=== PATIENT | male | born 1950 | race Caucasian/White ===

== ENCOUNTER → 2016-06-11 | Outpatient (REF) | payer MEDICARE, MEDICAID ==
[~2016-06-11] MED LIST: /ATOR40TA PO; AMOXICILLIN; ASPI81TA85 PO; CLOP75TA2 PO; FOLI1TAB86 PO; METO50TA2 PO; NASAL SPRAY; NICO21PAT EXT; SENO8.6T9 PO; TYLE325T5 PO; VITA100T2 PO; VITMTA PO
[2016-06-11 18:44] LABS: MEAN CORPUSCULAR HEMOGLOBIN 30.1 pg (27.0-33.0); MEAN CORPUSCULAR HGB CONC 33.4 g/dl (32.0-36.5); RED CELL DISTRIBUTION WIDTH 12.5 % (11.5-14.5); WHITE BLOOD COUNT 5.8 K/mm3 (4.0-10.0)
[2016-06-11 18:53] LABS: ALBUMIN 4.1 GM/DL (3.2-5.2); ALBUMIN/GLOBULIN RATIO 1.17 (1.00-1.93); ALKALINE PHOSPHATASE 133 U/L (45-117); ALT/SGPT 41 U/L (12-78); ANION GAP 7 MEQ/L (8-16); AST/SGOT 25 U/L (15-37); BILIRUBIN,TOTAL 0.7 MG/DL (0.2-1.0); BLOOD UREA NITROGEN 13 MG/DL (7-18); CALCIUM LEVEL 9.2 MG/DL (8.8-10.2); CARBON DIOXIDE LEVEL 31 MEQ/L (21-32); CHLORIDE LEVEL 100 MEQ/L (98-107); CREATININE FOR GFR 0.66 MG/DL (0.70-1.30); GLOMERULAR FILTRATION RATE > 60.0 (>49); GLUCOSE, FASTING 81 MG/DL (80-110); SODIUM LEVEL 138 MEQ/L (136-145); TOTAL PROTEIN 7.6 GM/DL (6.4-8.2)
== END ==
LOC: M LAB REF 16:27
PROVIDERS: ATTEND Physician Assistant
DX: Z51.81 Encounter for therapeutic drug level monitoring (principal); Z79.899 Other long term (current) drug therapy

== ENCOUNTER 2016-06-21 17:14 | Inpatient (IN) | payer MEDICARE, MEDICAID ==
[~2016-06-21] VITALS: Ht 177.8 cm; Wt 78.8 kg
[2016-06-21] MEDS ORDERED: NS 500 ML IV ONE (17:45)
[2016-06-21 18:32] LABS: BASO % 0.2 % (0.0-1.0); EOS % 0.3 % (0.0-3.0); LARGE UNSTAINED CELL # 0.1 K/mm3 (0.0-0.4); LARGE UNSTAINED CELL % 0.4 % (0.0-4.0); LYMPH # 0.3 K/mm3 (1.5-4.5); LYMPH % 2.4 % (24.0-44.0); MEAN CORPUSCULAR HEMOGLOBIN 29.8 pg (27.0-33.0); MEAN CORPUSCULAR VOLUME 87.7 fl (80.0-96.0); MONO # 0.5 K/mm3 (0.0-0.8); MONO % 3.2 % (0.0-5.0); NEUTROPHILS # 13.1 K/mm3 (1.8-7.7); NEUTROPHILS % 93.5 % (36.0-66.0); PLATELET COUNT, AUTOMATED 257 k/mm3 (150-450); RED CELL DISTRIBUTION WIDTH 12.6 % (11.5-14.5)
[2016-06-21] MEDS ORDERED: LISI-538 PO (18:32)
[2016-06-21] MEDS ORDERED: FOLI5INJ2 SC (18:32)
[2016-06-21] MEDS ORDERED: SERT25TA PO (18:32)
[2016-06-21] MEDS ORDERED: APAP325T PO (18:32)
[2016-06-21] MEDS ORDERED: ASPI81TA21 PO (18:32)
[2016-06-21] MEDS ORDERED: ATOR40TA PO (18:32)
[2016-06-21] MEDS ORDERED: ACETAMINOPHEN TAB 650MG DOSE (2X325MG) PO ONE (18:45)
[2016-06-21 19:07] LABS: ALBUMIN 3.6 GM/DL (3.2-5.2); ALBUMIN/GLOBULIN RATIO 0.95 (1.00-1.93); ALKALINE PHOSPHATASE 107 U/L (45-117); ALT/SGPT 34 U/L (12-78); ANION GAP 10 MEQ/L (8-16); AST/SGOT 23 U/L (15-37); BILIRUBIN,DIRECT 0.1 MG/DL (0.0-0.2); BILIRUBIN,TOTAL 0.7 MG/DL (0.2-1.0); BLOOD UREA NITROGEN 15 MG/DL (7-18); CALCIUM LEVEL 9.3 MG/DL (8.8-10.2); CARBON DIOXIDE LEVEL 27 MEQ/L (21-32); CHLORIDE LEVEL 96 MEQ/L (98-107); CREATININE FOR GFR 0.87 MG/DL (0.70-1.30); GLOMERULAR FILTRATION RATE > 60.0 (>49); GLUCOSE, FASTING 109 MG/DL (80-110); SODIUM LEVEL 133 MEQ/L (136-145); TOTAL PROTEIN 7.4 GM/DL (6.4-8.2)
[2016-06-21] MEDS ORDERED: GASTROGRAFIN SOLUTION 30ML (Q9963) PO ONE ×2 (20:30)
[2016-06-21] MEDS ORDERED: NS 1,000 ML IV ONE ×2 (21:00→23:30)
[2016-06-21] MEDS ORDERED: ISOVUE-370 76% 100ML VIAL (Q9967) As Ordered ONE (22:11)
[2016-06-21] MEDS ORDERED: ATOR1TAB21 PO (23:08)
[2016-06-21] MEDS ORDERED: FOLI1TAB2 PO (23:08)
--- NOTE | 2016-06-21 23:30 | REPUSA ---
CLINICAL HISTORY: Abdominal pain. TECHNIQUE: CT abdomen and pelvis following administration of IV contrast. COMPARISON: No pertinent prior studies are available at this time. CT ABDOMEN WITH CONTRAST: Lung bases: Bibasilar dependent atelectasis. Stomach: PEG tube noted in good position. Liver: No intrahepatic ductal dilation. Gallbladder: Normally distended. Pancreas: No pancreatic duct dilation. Bowel loops: Nondistended. Spleen: Normal size. Adrenals: 1.7 cm right adrenal nodule. Kidneys: No stones or hydronephrosis. Aorta: Irregular atherosclerotic plaques, some which appear unstable Peritoneum: No free air. CT PELVIS WITH CONTRAST: Colon: Multiple sigmoid diverticula without convincing evidence of diverticulitis. Appendix: Normal appendix is seen. Bladder: Normally distended. Pelvic organs: Unremarkable. Peritoneum: No fluid. Skeleton: No acute findings. IMPRESSION: 1. Sigmoid diverticulosis without convincing evidence of diverticulitis. However, mild diverticulitis cannot be excluded if the patient has left lower quadrant symptoms. 2. 1.7 cm right adrenal nodule. This may be followed up with noncontrast abdominal CT or adrenal MRI, on a nonemergent basis.
[2016-06-22] MEDS ORDERED: CIPROFLOXACIN 400 MG in APPROPRIATE DILUENT 1 EA IV ONE ×2
[2016-06-22] MEDS ORDERED: metroNIDAZOLE 500 MG in APPROPRIATE DILUENT 1 EA IV ONE ×2
[2016-06-22] MEDS ORDERED: ACETAMINOPHEN 325 MG TAB PO PRN (00:15)
[2016-06-22] MEDS ORDERED: ONDANSETRON 4MG/2ML VIAL (J2405) IV PRN (01:15)
[2016-06-22] MEDS ORDERED: PERCOCET 5MG/325MG TAB PO PRN ×2 (01:15)
[2016-06-22 02:25] VITALS: BP 104/66
[2016-06-22] MEDS: NS 1,000 ML IV SCH ×2 (02:38→14:50)
[2016-06-22 04:00] VITALS: BP 94/51
[2016-06-22 06:48] LABS: MEAN CORPUSCULAR HEMOGLOBIN 30.5 pg (27.0-33.0); MEAN CORPUSCULAR HGB CONC 34.2 g/dl (32.0-36.5); MEAN CORPUSCULAR VOLUME 89.2 fl (80.0-96.0); RED CELL DISTRIBUTION WIDTH 12.8 % (11.5-14.5); WHITE BLOOD COUNT 7.8 K/mm3 (4.0-10.0)
--- NOTE | 2016-06-22 06:54 | HPE ---
DATE OF ADMISSION: 06/22/2016 PRIMARY CARE PROVIDER: Dr. Fagan CHIEF COMPLAINT: Fever, nausea and vomiting. HISTORY OF PRESENT ILLNESS: The patient is a 66-year-old man status post a CVA with right sided residual deficits who lives at home with home health aide who was brought into the emergency room by his health care proxy and EMS after EMS was called for low blood pressure and fevers. As per documentation from the emergency room (ER), when EMS arrived, the patient was not hypotensive. He was mildly hypoxic and was started on nasal cannula oxygen which resolved with 6 liters. The patient is nonverbal at his baseline as he only gives thumbs up and thumbs down. He can follow basic commands, but cannot answer any questions. He is unable to provide any history and as such history is obtained via verbal report from the emergency department (ED) provider and review of the medical record. PAST MEDICAL HISTORY: 1. CVA with residual deficits. 2. Hypertension. 3. Alcohol abuse and tobacco abuse prior to CVA. 4. Dyslipidemia. 5. Diastolic congestive heart failure. 6. Mood disorder. PAST SURGICAL HISTORY: Tooth extraction. ALLERGIES: No known drug allergies. SOCIAL HISTORY: The patient lives at home with home health. He has a health care proxy. He has a history of excessive tobacco and alcohol abuse in the past prior to his CVA two years ago. He is a retired goff. FAMILY HISTORY: Noncontributory. REVIEW OF SYSTEMS: Unable to be obtained. HOME MEDICATIONS: - atorvastatin 60 mg at bedtime - lisinopril 20 mg daily - acetaminophen 325 mg every 4 hours as needed pain - aspirin 81 mg daily - folic acid 1 mg daily - Sertraline 25 mg daily PHYSICAL EXAMINATION: T-max 100.8. Temperature current 98.8. Pulse 86. Respiratory rate 20. Blood pressure 101/59 and as low as 76/37 in the emergency room, which was improved with IV fluids. Oxygen saturation 99% on 2 liters nasal cannula. GENERAL: He is a disheveled elderly man laying flat on the stretcher. He is resting comfortably. He does not appear to be in any acute distress. HEENT: He has some chronic facial droop. He has very dry mucous membranes. He appears disheveled. CARDIOVASCULAR EXAM: S1, S2. Regular. RESPIRATORY EXAM: Clear. ABDOMINAL EXAM: Bowel sounds are present. The abdomen is soft and nontender. EXTREMITIES: No clubbing, cyanosis or edema. He has some skin tenting. No ulcers or open sores. LABORATORY STUDIES: WBC 14.0, hemoglobin 13.8, hematocrit 40.5 and platelet count 257. Chemistry panel with sodium 133, potassium 4.0, chloride 96, bicarbonate 27, BUN 15, creatinine 0.8, lactic acid 1.7. Liver function tests within normal limits. A set of cardiac enzymes is negative. Lipase is negative. Urinalysis is positive for RBCs, but not any WBCs. MICROBIOLOGY: Blood cultures have been drawn and pending. Influenza swab is negative. IMAGING: The patient did have a CT scan of the abdomen and pelvis which could not rule out mild diverticulitis. The patient was found to have a 1.7 cm right adrenal nodule as well. He did have a chest x-ray. There is no report available at this time, but no obvious infiltrate as per the ED provider. ASSESSMENT AND PLAN: This is a 66-year-old man presenting with fever and hypotension. 1. Fever and hypotension. Given that the patient is nonverbal, the only thing we have to direct us is his symptoms of nausea and vomiting and a CT scan which cannot exclude some mild diverticulitis. Will keep him nothing by mouth (n.p.o.) and place him on Cipro and Flagyl IV and provide him with pain medications. Will admit him to the progressive care unit as he was hypotensive. He is improving with IV fluids and will continue him on normal saline at 75 mL/hr. He has a history of diastolic congestive heart failure so we will use cautiously. To rule out other etiologies for his fever, will check a respiratory PCR and a gastrointestinal (GI) PCR panel in the stool. He does not exhibit any meningeal signs. He is able to follow commands and does not appear to have restricted range of motion at the neck. 2. Adrenal nodule, incidental finding on the scan. Consider outpatient followup with his PCP. 3. History of CVA. The patient is on aspirin and a statin. 4. Mood disorder. Will continue with Zoloft. 5. History of alcohol abuse. Continue with folic acid. 6. Hypochloridemia and hyponatremia. It appears to be hypovolemic hyponatremia. We will provide IV fluids and recheck. 7. Diastolic congestive heart failure. He actually appears hypovolemic at this time and as such we will provide him with IV fluids. We will hold his lisinopril. 8. Hypertension. As outlined above, will hold his lisinopril. 9. Deep vein thrombosis (DVT) prophylaxis. The patient will be on Lovenox. DISPOSITION: The patient is admitted to the progressive care unit to Dr. Dalton's service who will continue following the patient at 7:00 a.m.
[2016-06-22 07:14] LABS: ALKALINE PHOSPHATASE 94 U/L (45-117); ALT/SGPT 36 U/L (12-78); ANION GAP 9 MEQ/L (8-16); AST/SGOT 24 U/L (15-37); BILIRUBIN,TOTAL 0.6 MG/DL (0.2-1.0); BLOOD UREA NITROGEN 11 MG/DL (7-18); CARBON DIOXIDE LEVEL 27 MEQ/L (21-32); CHLORIDE LEVEL 100 MEQ/L (98-107); CREATININE FOR GFR 0.69 MG/DL (0.70-1.30); GLOMERULAR FILTRATION RATE > 60.0 (>49); GLUCOSE, FASTING 106 MG/DL (80-110); SODIUM LEVEL 136 MEQ/L (136-145)
--- NOTE | 2016-06-22 07:32 | REP ---
Clinical: Lower chest and abdominal pain. Technique: PA and lateral. Comparison: 06/09/2013. Findings: Mediastinum and cardiac silhouette are stable with evidence for prior sternotomy and CABG. Lung mayorga demonstrate chronic changes without acute consolidation, effusion, or pneumothorax. Skeletal structures demonstrate age-related changes. Impression: Chronic stable changes. No acute cardiopulmonary process or focal consolidation. Signed by Yrn Nicole MD 06/22/2016 07:24 A
[2016-06-22 08:00] VITALS: BP 96/55
[2016-06-22] MEDS: metroNIDAZOLE 500 MG in APPROPRIATE DILUENT 1 EA IV SCH ×3 (08:01→23:26)
[2016-06-22 08:26] LABS: ALBUMIN/GLOBULIN RATIO 1.07 (1.00-1.93)
[2016-06-22 08:45] LABS: TOTAL PROTEIN 5.6 GM/DL (6.4-8.2)
[2016-06-22 08:46] LABS: ALBUMIN 2.9 GM/DL (3.2-5.2)
[2016-06-22] MEDS: SERTRALINE HCL 25 MG TABLET PO SCH (09:00)
[2016-06-22] MEDS: ASPIRIN 81 MG ENTERIC TAB PO SCH (09:51)
[2016-06-22] MEDS: FOLIC ACID 1 MG TAB PO SCH (09:51)
[2016-06-22] MEDS: ENOXAPARIN 40 MG/0.4 ML SYRINGE (J1650) SC SCH (09:52)
[2016-06-22] MEDS: CIPROFLOXACIN 400 MG in APPROPRIATE DILUENT 1 EA IV SCH ×2 (11:11→23:25)
[2016-06-22 12:00] VITALS: BP 91/51
--- NOTE | 2016-06-22 12:29 | ECGEPIP ---
Stationary ECG Study [facility] - ED Test Date: 2016-06-21 Pat Name: JIA DURAN Department: Room: - Gender: M Endocrinology Specialist: TARA : [id number] Requested By: PAULY Clark Order Number: [id number] Reading MD: Bisi Neely Measurements Intervals [place] Rate: 98 P: 50 RI: 166 QRS: 42 QRSD: 101 T: 140 QT: 321 QTc: 411 Interpretive Statements SINUS RHYTHM NONSPECIFIC T-WAVE ABNORMALITY INCREASED RATE 06/09/13 Electronically Signed On 06-22-2016 12:29:04 EDT by Bisi Neely
[2016-06-22 14:15] VITALS: BP 95/50
[2016-06-22 22:00] VITALS: BP 118/63
[2016-06-23 06:00] VITALS: BP 113/53
[2016-06-23 07:11] LABS: MEAN CORPUSCULAR HEMOGLOBIN 30.6 pg (27.0-33.0); MEAN CORPUSCULAR HGB CONC 34.1 g/dl (32.0-36.5); MEAN CORPUSCULAR VOLUME 89.6 fl (80.0-96.0); RED CELL DISTRIBUTION WIDTH 12.6 % (11.5-14.5); WHITE BLOOD COUNT 4.5 K/mm3 (4.0-10.0)
[2016-06-23 07:29] LABS: ANION GAP 9 MEQ/L (8-16); BLOOD UREA NITROGEN 9 MG/DL (7-18); CALCIUM LEVEL 8.6 MG/DL (8.8-10.2); CARBON DIOXIDE LEVEL 30 MEQ/L (21-32); CHLORIDE LEVEL 101 MEQ/L (98-107); CREATININE FOR GFR 0.75 MG/DL (0.70-1.30); GLOMERULAR FILTRATION RATE > 60.0 (>49); GLUCOSE, FASTING 92 MG/DL (80-110); POTASSIUM SERUM 3.7 MEQ/L (3.5-5.1); SODIUM LEVEL 140 MEQ/L (136-145)
[2016-06-23] MEDS: metroNIDAZOLE 500 MG in APPROPRIATE DILUENT 1 EA IV SCH ×2 (08:30→16:06)
[2016-06-23] MEDS: SERTRALINE HCL 25 MG TABLET PO SCH (08:30)
[2016-06-23] MEDS: FOLIC ACID 1 MG TAB PO SCH (08:30)
[2016-06-23] MEDS: ASPIRIN 81 MG ENTERIC TAB PO SCH (08:30)
[2016-06-23] MEDS: ENOXAPARIN 40 MG/0.4 ML SYRINGE (J1650) SC SCH (08:31)
[2016-06-23] MEDS: CIPROFLOXACIN 400 MG in APPROPRIATE DILUENT 1 EA IV SCH (12:03)
[2016-06-23 14:00] VITALS: BP 112/59
[2016-06-23 20:00] VITALS: BP 127/67
[2016-06-24] MEDS: metroNIDAZOLE 500 MG in APPROPRIATE DILUENT 1 EA IV SCH ×2 (00:06→10:37)
[2016-06-24] MEDS: CIPROFLOXACIN 400 MG in APPROPRIATE DILUENT 1 EA IV SCH ×2 (00:08→11:53)
[2016-06-24 06:00] VITALS: BP 108/62
[2016-06-24 06:56] LABS: MEAN CORPUSCULAR HEMOGLOBIN 29.8 pg (27.0-33.0); MEAN CORPUSCULAR HGB CONC 33.7 g/dl (32.0-36.5); MEAN CORPUSCULAR VOLUME 88.5 fl (80.0-96.0); RED CELL DISTRIBUTION WIDTH 12.5 % (11.5-14.5); WHITE BLOOD COUNT 4.8 K/mm3 (4.0-10.0)
[2016-06-24 07:05] LABS: ANION GAP 5 MEQ/L (8-16); BLOOD UREA NITROGEN 11 MG/DL (7-18); CALCIUM LEVEL 8.4 MG/DL (8.8-10.2); CARBON DIOXIDE LEVEL 30 MEQ/L (21-32); CHLORIDE LEVEL 105 MEQ/L (98-107); CREATININE FOR GFR 0.65 MG/DL (0.70-1.30); GLOMERULAR FILTRATION RATE > 60.0 (>49); GLUCOSE, FASTING 98 MG/DL (80-110); POTASSIUM SERUM 3.9 MEQ/L (3.5-5.1); SODIUM LEVEL 140 MEQ/L (136-145)
[2016-06-24] MEDS: ENOXAPARIN 40 MG/0.4 ML SYRINGE (J1650) SC SCH (10:37)
[2016-06-24] MEDS: ASPIRIN 81 MG ENTERIC TAB PO SCH (10:38)
[2016-06-24] MEDS: FOLIC ACID 1 MG TAB PO SCH (10:38)
[2016-06-24] MEDS: SERTRALINE HCL 25 MG TABLET PO SCH (10:38)
--- NOTE | 2016-06-24 12:12 | IPNPDOC ---
Subjective Date Seen The patient was seen on 06/23/16. Subjective Chief Complaint/HPI The patient is a 66-year-old male admitted with a reason for visit of Diverticulitis. Events since last encounter pt is nonverbal, no acute events overnight Objective Physical Examination General Exam: Positive: No Acute Distress Eye Exam: Positive: Conjunctiva & lids normal, PERRLA Chest Exam: Positive: Clear to auscultation, Normal air movement Abdomen Exam: Positive: Normal bowel sounds, Soft, Negative: Hepatospenomegaly, Tenderness Extremity Exam: Positive: Other (right sided deficits) Assessment /Plan Problems (1) Gait instability Status: Acute Problem Text: * pt has right sided deficits due to history of CVA * PT has evaluated pt yesterday and he was found to need more physical rehab * PFS is consulted for possible placement (2) Impaired activities of daily living Status: Acute Problem Text: * pt was found to be unkempt (3) History of CVA with residual deficit Status: Chronic Response to Treatment: Stable (4) HTN (hypertension) Status: Chronic Response to Treatment: Stable (5) HLD (hyperlipidemia) Status: Chronic Response to Treatment: Stable (6) CHF (congestive heart failure) Status: Chronic Problem Text: * pt has diastolic dysfunction * doesn't appear to be fluid overloaded (7) Diverticulitis Status: Acute Problem Text: * continue antibiotics * no fevers or elevated wbc * pt is tolerating diet (8) Adrenal nodule Status: Acute Problem Text: 1.[address] on [address] scan follow up outpt recommended Plan/VTE VTE Prophylaxis Ordered?: Yes VS, [facility]s/I&O Vital Signs Date Time Temp Pulse Resp B/P Pulse Ox O2 Delivery O2 Flow Rate FiO2 06/23/16 14:00 98.0 71 18 112/59 94 Room Air 06/22/16 02:25 3.5 I&O- Last 24 Hours up to 6 AM 06/23/16 06:00 Intake Total 1080 ml Balance 1080 ml Laboratory Data 24H LABS Laboratory Tests 2 06/23/16 06:29: Anion Gap 9, Blood Urea Nitrogen 9, Creatinine 0.75, Sodium Level 140, Potassium Level 3.7, Chloride Level 101, Carbon Dioxide Level 30, Calcium Level 8.6L, Glomerular Filtration Rate > 60.0 CBC/BMP Laboratory Tests 06/23/16 06:29 Calcium Level 8.6 L, Red Blood Count 4.05 L, Mean Corpuscular Volume 89.6, Mean Corpuscular Hemoglobin 30.6, Mean Corpuscular Hemoglobin Concent 34.1, Red Cell Distribution Width 12.6 Microbiology Microbiology 06/21/16 Blood Culture - Preliminary, Resulted No Growth after 48 hours. All Specime... 06/21/16 Blood Culture - Preliminary, Resulted No Growth after 48 hours. All Specime... 06/21/16 Influenza Virus Type A Antigen - Final, Complete 06/21/16 Influenza Virus Type B Antigen - Final, Complete 06/21/16 Respiratory Virus Panel (PCR) (MONO) - Final, Complete MONA PULIDO DO Jun 23, 2016 19:13
--- NOTE | 2016-06-24 12:19 | IPNPDOC ---
Subjective Date Seen The patient was seen on 06/24/16. Subjective Chief Complaint/HPI The patient is a 66-year-old male admitted with a reason for visit of Diverticulitis. Events since last encounter pt seen and examined doing well, no other events, overnight, General: Reports: ROS Unobtainable Objective Physical Examination General Exam: Positive: No Acute Distress Eye Exam: Positive: Conjunctiva & lids normal, PERRLA Chest Exam: Positive: Clear to auscultation, Normal air movement Abdomen Exam: Positive: Normal bowel sounds, Soft, Negative: Hepatospenomegaly, Tenderness Extremity Exam: Positive: Other (right sided deficits) Assessment /Plan Problems (1) Gait instability Status: Acute Problem Text: * pt has right sided deficits due to history of CVA * PT has evaluated pt yesterday and he was found to need more physical rehab * PFS is consulted for possible placement (2) Impaired activities of daily living Status: Acute Problem Text: * pt was found to be unkempt (3) History of CVA with residual deficit Status: Chronic Response to Treatment: Stable Problem Text: * pt has right sided deficits and nonverbal * he has been living alone with [facility] coming by a few time week * will likely need rehab vs long term care administrator placment * PT/OT and pfs consulted (4) HTN (hypertension) Status: Chronic Response to Treatment: Stable Problem Text: * pt's pressure has been controlled with no medication * his lisinopril was held on admission (5) HLD (hyperlipidemia) Status: Chronic Response to Treatment: Stable (6) CHF (congestive heart failure) Status: Chronic Problem Text: * pt has diastolic dysfunction * doesn't appear to be fluid overloaded (7) Diverticulitis Status: Acute Problem Text: * continue antibiotics * no fevers or elevated wbc * pt is tolerating diet (8) Adrenal nodule Status: Acute Problem Text: 1.[address] nodule on CT scan follow up outpt recommended Plan/VTE VTE Prophylaxis Ordered?: Yes VS, I&O, 24H, Fishbone Vital Signs/I&O Vital Signs Date Time Temp Pulse Resp B/P Pulse Ox O2 Delivery O2 Flow Rate FiO2 06/24/16 06:00 98.1 89 18 108/62 93 Room Air 06/22/16 02:25 3.5 I&O- Last 24 Hours up to 6 AM 06/24/16 06:00 Intake Total 1610 ml Balance 1610 ml Laboratory Data 24H LABS Laboratory Tests 2 06/24/16 06:29: Anion Gap 5L, Blood Urea Nitrogen 11, Creatinine 0.65L, Sodium Level 140, Potassium Level 3.9, Chloride Level 105, Carbon Dioxide Level 30, Calcium Level 8.4L, Glomerular Filtration Rate > 60.0 CBC/BMP Laboratory Tests 06/24/16 06:29 Calcium Level 8.4 L, Red Blood Count 4.08 L, Mean Corpuscular Volume 88.5, Mean Corpuscular Hemoglobin 29.8, Mean Corpuscular Hemoglobin Concent 33.7, Red Cell Distribution Width 12.5 Microbiology Microbiology 06/21/16 Blood Culture - Preliminary, Resulted No Growth after 48 hours. All Specime... 06/21/16 Blood Culture - Preliminary, Resulted No Growth after 48 hours. All Specime... 06/21/16 Influenza Virus Type A Antigen - Final, Complete 06/21/16 Influenza Virus Type B Antigen - Final, Complete 06/21/16 Respiratory Virus Panel (PCR) (MONO) - Final, Complete MONA PULIDO DO Jun 24, 2016 12:18
[2016-06-24 14:00] VITALS: BP 120/63
[2016-06-24] MEDS: CIPROFLOXACIN 250 MG TAB PO SCH (18:15)
[2016-06-24] MEDS: metroNIDAZOLE (FLAGYL) 500 MG TAB PO SCH (20:53)
[2016-06-24 22:00] VITALS: BP 145/63
[2016-06-25] MEDS: CIPROFLOXACIN 250 MG TAB PO SCH ×2 (05:40→17:48)
[2016-06-25] MEDS: metroNIDAZOLE (FLAGYL) 500 MG TAB PO SCH ×3 (05:40→21:11)
[2016-06-25 06:00] VITALS: BP 121/70
[2016-06-25 06:52] LABS: MEAN CORPUSCULAR HEMOGLOBIN 29.6 pg (27.0-33.0); MEAN CORPUSCULAR HGB CONC 33.8 g/dl (32.0-36.5); MEAN CORPUSCULAR VOLUME 87.5 fl (80.0-96.0); RED CELL DISTRIBUTION WIDTH 12.6 % (11.5-14.5); WHITE BLOOD COUNT 4.8 K/mm3 (4.0-10.0)
[2016-06-25 06:56] LABS: ANION GAP 8 MEQ/L (8-16); BLOOD UREA NITROGEN 12 MG/DL (7-18); CALCIUM LEVEL 8.3 MG/DL (8.8-10.2); CARBON DIOXIDE LEVEL 29 MEQ/L (21-32); CHLORIDE LEVEL 104 MEQ/L (98-107); CREATININE FOR GFR 0.68 MG/DL (0.70-1.30); GLOMERULAR FILTRATION RATE > 60.0 (>49); GLUCOSE, FASTING 97 MG/DL (80-110); SODIUM LEVEL 141 MEQ/L (136-145)
[2016-06-25] MEDS: FOLIC ACID 1 MG TAB PO SCH (10:04)
[2016-06-25] MEDS: SERTRALINE HCL 25 MG TABLET PO SCH (10:04)
[2016-06-25] MEDS: ENOXAPARIN 40 MG/0.4 ML SYRINGE (J1650) SC SCH (10:04)
[2016-06-25] MEDS: ASPIRIN 81 MG ENTERIC TAB PO SCH (10:04)
[2016-06-25 14:00] VITALS: BP 125/70
[2016-06-25 22:00] VITALS: BP 122/72
[2016-06-26 06:00] VITALS: BP 120/70
[2016-06-26] MEDS: metroNIDAZOLE (FLAGYL) 500 MG TAB PO SCH ×3 (06:36→21:50)
[2016-06-26] MEDS: CIPROFLOXACIN 250 MG TAB PO SCH ×2 (06:36→18:05)
[2016-06-26 07:16] LABS: MEAN CORPUSCULAR HEMOGLOBIN 29.7 pg (27.0-33.0); MEAN CORPUSCULAR HGB CONC 33.4 g/dl (32.0-36.5); RED CELL DISTRIBUTION WIDTH 12.6 % (11.5-14.5); WHITE BLOOD COUNT 5.7 K/mm3 (4.0-10.0)
[2016-06-26 07:41] LABS: ANION GAP 9 MEQ/L (8-16); BLOOD UREA NITROGEN 16 MG/DL (7-18); CALCIUM LEVEL 8.8 MG/DL (8.8-10.2); CARBON DIOXIDE LEVEL 29 MEQ/L (21-32); CHLORIDE LEVEL 103 MEQ/L (98-107); CREATININE FOR GFR 0.66 MG/DL (0.70-1.30); GLOMERULAR FILTRATION RATE > 60.0 (>49); GLUCOSE, FASTING 94 MG/DL (80-110); POTASSIUM SERUM 3.5 MEQ/L (3.5-5.1); SODIUM LEVEL 141 MEQ/L (136-145)
[2016-06-26] MEDS: FOLIC ACID 1 MG TAB PO SCH (08:57)
[2016-06-26] MEDS: SERTRALINE HCL 25 MG TABLET PO SCH (08:57)
[2016-06-26] MEDS: ENOXAPARIN 40 MG/0.4 ML SYRINGE (J1650) SC SCH (08:57)
[2016-06-26] MEDS: ASPIRIN 81 MG ENTERIC TAB PO SCH (08:57)
[2016-06-26 22:00] VITALS: BP 109/59
[2016-06-27 06:00] VITALS: BP 119/58
[2016-06-27] MEDS: CIPROFLOXACIN 250 MG TAB PO SCH ×2 (06:52→16:28)
[2016-06-27] MEDS: metroNIDAZOLE (FLAGYL) 500 MG TAB PO SCH ×3 (06:52→22:42)
[2016-06-27 07:00] LABS: MEAN CORPUSCULAR HEMOGLOBIN 30.3 pg (27.0-33.0); MEAN CORPUSCULAR HGB CONC 34.2 g/dl (32.0-36.5); MEAN CORPUSCULAR VOLUME 88.8 fl (80.0-96.0); WHITE BLOOD COUNT 8.1 K/mm3 (4.0-10.0)
[2016-06-27 07:07] LABS: ANION GAP 7 MEQ/L (8-16); BLOOD UREA NITROGEN 15 MG/DL (7-18); CALCIUM LEVEL 8.6 MG/DL (8.8-10.2); CARBON DIOXIDE LEVEL 29 MEQ/L (21-32); CHLORIDE LEVEL 105 MEQ/L (98-107); CREATININE FOR GFR 0.71 MG/DL (0.70-1.30); GLOMERULAR FILTRATION RATE > 60.0 (>49); GLUCOSE, FASTING 98 MG/DL (80-110); POTASSIUM SERUM 3.6 MEQ/L (3.5-5.1); SODIUM LEVEL 141 MEQ/L (136-145)
--- NOTE | 2016-06-27 07:51 | IPNPDOC ---
Subjective Date Seen The patient was seen on 06/27/16. Subjective Chief Complaint/HPI The patient is a 66-year-old male admitted with a reason for visit of Diverticulitis. General: Reports: ROS Unobtainable Objective Physical Examination General Exam: Positive: No Acute Distress Eye Exam: Positive: Conjunctiva & lids normal, PERRLA Chest Exam: Positive: Clear to auscultation, Normal air movement Abdomen Exam: Positive: Normal bowel sounds, Soft, Negative: Hepatospenomegaly, Tenderness Extremity Exam: Positive: Other (right sided deficits) Assessment /Plan Problems (1) Gait instability Status: Acute Problem Text: * pt has right sided deficits due to history of CVA * PT has evaluated pt yesterday and he was found to need more physical rehab * PFS is consulted for placement (2) Impaired activities of daily living Status: Acute Problem Text: * pt was found to be unkempt (3) History of CVA with residual deficit Status: Chronic Response to Treatment: Stable Problem Text: * pt has right sided deficits and nonverbal * he has been living alone with [facility] coming by a few time week * will likely need rehab vs oil heaterman placment * PT/OT and pfs consulted (4) HTN (hypertension) Status: Chronic Response to Treatment: Stable Problem Text: * pt's pressure has been controlled with no medication * his lisinopril was held on admission (5) HLD (hyperlipidemia) Status: Chronic Response to Treatment: Stable (6) CHF (congestive heart failure) Status: Chronic Problem Text: * pt has diastolic dysfunction * doesn't appear to be fluid overloaded (7) Diverticulitis Status: Resolved Problem Text: * continue antibiotics till * no fevers or elevated wbc * pt is tolerating diet (8) Adrenal nodule Status: Acute Problem Text: 1.[address] nodule on CT scan follow up outpt recommended Plan/VTE VTE Prophylaxis Ordered?: Yes VS, I&O, 24H, Fishbone Vital Signs/I&O Vital Signs Date Time Temp Pulse Resp B/P Pulse Ox O2 Delivery O2 Flow Rate FiO2 06/27/16 06:00 97.9 73 18 119/58 06/26/16 22:00 96 Room Air 06/22/16 02:25 3.5 I&O- Last 24 Hours up to 6 AM 06/27/16 06:00 Intake Total 600 ml Output Total 500 ml Balance 100 ml Laboratory Data 24H LABS Laboratory Tests 2 06/27/16 05:49: Anion Gap 7L, Blood Urea Nitrogen 15, Creatinine 0.71, Sodium Level 141, Potassium Level 3.6, Chloride Level 105, Carbon Dioxide Level 29, Calcium Level 8.6L, Glomerular Filtration Rate > 60.0 CBC/BMP Laboratory Tests 06/27/16 05:49 Calcium Level 8.6 L, Red Blood Count 4.53, Mean Corpuscular Volume 88.8, Mean Corpuscular Hemoglobin 30.3, Mean Corpuscular Hemoglobin Concent 34.2, Red Cell Distribution Width 13.0 Microbiology Microbiology 06/21/16 Blood Culture - Final, Complete NO GROWTH AFTER 5 DAYS 06/21/16 Blood Culture - Final, Complete NO GROWTH AFTER 5 DAYS 06/21/16 Influenza Virus Type A Antigen - Final, Complete 06/21/16 Influenza Virus Type B Antigen - Final, Complete 06/21/16 Respiratory Virus Panel (PCR) (MONO) - Final, Complete MONA PUILDO DO Jun 27, 2016 07:50
[2016-06-27] MEDS: ENOXAPARIN 40 MG/0.4 ML SYRINGE (J1650) SC SCH (10:44)
[2016-06-27] MEDS: ASPIRIN 81 MG ENTERIC TAB PO SCH (10:44)
[2016-06-27] MEDS: SERTRALINE HCL 25 MG TABLET PO SCH (10:44)
[2016-06-27] MEDS: FOLIC ACID 1 MG TAB PO SCH (10:44)
[2016-06-27 22:00] VITALS: BP 139/74
[2016-06-28] MEDS: CIPROFLOXACIN 250 MG TAB PO SCH ×2 (05:47→18:06)
[2016-06-28] MEDS: metroNIDAZOLE (FLAGYL) 500 MG TAB PO SCH ×3 (05:47→21:14)
[2016-06-28 06:00] VITALS: BP 125/69
[2016-06-28 06:53] LABS: MEAN CORPUSCULAR HEMOGLOBIN 29.8 pg (27.0-33.0); MEAN CORPUSCULAR HGB CONC 33.3 g/dl (32.0-36.5); MEAN CORPUSCULAR VOLUME 89.6 fl (80.0-96.0); RED CELL DISTRIBUTION WIDTH 13.2 % (11.5-14.5); WHITE BLOOD COUNT 7.8 K/mm3 (4.0-10.0)
[2016-06-28 07:07] LABS: ANION GAP 7 MEQ/L (8-16); BLOOD UREA NITROGEN 17 MG/DL (7-18); CALCIUM LEVEL 8.5 MG/DL (8.8-10.2); CARBON DIOXIDE LEVEL 30 MEQ/L (21-32); CHLORIDE LEVEL 104 MEQ/L (98-107); GLOMERULAR FILTRATION RATE > 60.0 (>49); GLUCOSE, FASTING 101 MG/DL (80-110); POTASSIUM SERUM 3.7 MEQ/L (3.5-5.1); SODIUM LEVEL 141 MEQ/L (136-145)
[2016-06-28] MEDS: ENOXAPARIN 40 MG/0.4 ML SYRINGE (J1650) SC SCH (09:40)
[2016-06-28] MEDS: FOLIC ACID 1 MG TAB PO SCH (09:40)
[2016-06-28] MEDS: ASPIRIN 81 MG ENTERIC TAB PO SCH (09:40)
[2016-06-28] MEDS: SERTRALINE HCL 25 MG TABLET PO SCH (09:40)
[2016-06-28 14:00] VITALS: BP 118/51
[2016-06-28 22:00] VITALS: BP 141/79
[2016-06-29] MEDS: metroNIDAZOLE (FLAGYL) 500 MG TAB PO SCH ×3 (05:27→20:51)
[2016-06-29] MEDS: CIPROFLOXACIN 250 MG TAB PO SCH ×2 (05:27→17:36)
[2016-06-29 06:00] VITALS: BP 123/65
[2016-06-29 06:40] LABS: MEAN CORPUSCULAR HEMOGLOBIN 29.9 pg (27.0-33.0); MEAN CORPUSCULAR HGB CONC 33.6 g/dl (32.0-36.5); RED CELL DISTRIBUTION WIDTH 13.3 % (11.5-14.5); WHITE BLOOD COUNT 8.4 K/mm3 (4.0-10.0)
[2016-06-29 06:58] LABS: ANION GAP 7 MEQ/L (8-16); BLOOD UREA NITROGEN 18 MG/DL (7-18); CALCIUM LEVEL 8.5 MG/DL (8.8-10.2); CARBON DIOXIDE LEVEL 30 MEQ/L (21-32); CHLORIDE LEVEL 103 MEQ/L (98-107); CREATININE FOR GFR 0.76 MG/DL (0.70-1.30); GLOMERULAR FILTRATION RATE > 60.0 (>49); GLUCOSE, FASTING 106 MG/DL (80-110); POTASSIUM SERUM 3.8 MEQ/L (3.5-5.1); SODIUM LEVEL 140 MEQ/L (136-145)
[2016-06-29] MEDS: SERTRALINE HCL 25 MG TABLET PO SCH (08:49)
[2016-06-29] MEDS: ASPIRIN 81 MG ENTERIC TAB PO SCH (08:49)
[2016-06-29] MEDS: FOLIC ACID 1 MG TAB PO SCH (08:49)
[2016-06-29] MEDS: ENOXAPARIN 40 MG/0.4 ML SYRINGE (J1650) SC SCH (08:49)
[2016-06-29 14:00] VITALS: BP 141/76
[2016-06-29 22:00] VITALS: BP 125/67
[2016-06-30] MEDS: metroNIDAZOLE (FLAGYL) 500 MG TAB PO SCH ×3 (05:45→21:25)
[2016-06-30] MEDS: CIPROFLOXACIN 250 MG TAB PO SCH ×2 (05:45→18:30)
[2016-06-30 06:00] VITALS: BP 118/64
[2016-06-30 06:55] LABS: MEAN CORPUSCULAR HEMOGLOBIN 30.4 pg (27.0-33.0); MEAN CORPUSCULAR HGB CONC 33.9 g/dl (32.0-36.5); MEAN CORPUSCULAR VOLUME 89.6 fl (80.0-96.0); RED CELL DISTRIBUTION WIDTH 13.4 % (11.5-14.5); WHITE BLOOD COUNT 8.2 K/mm3 (4.0-10.0)
[2016-06-30 06:57] LABS: ANION GAP 5 MEQ/L (8-16); BLOOD UREA NITROGEN 17 MG/DL (7-18); CALCIUM LEVEL 8.8 MG/DL (8.8-10.2); CARBON DIOXIDE LEVEL 31 MEQ/L (21-32); CHLORIDE LEVEL 103 MEQ/L (98-107); CREATININE FOR GFR 0.85 MG/DL (0.70-1.30); GLOMERULAR FILTRATION RATE > 60.0 (>49); GLUCOSE, FASTING 103 MG/DL (80-110); SODIUM LEVEL 139 MEQ/L (136-145)
[2016-06-30] MEDS: FOLIC ACID 1 MG TAB PO SCH (09:01)
[2016-06-30] MEDS: ASPIRIN 81 MG ENTERIC TAB PO SCH (09:01)
[2016-06-30] MEDS: ENOXAPARIN 40 MG/0.4 ML SYRINGE (J1650) SC SCH (09:01)
[2016-06-30] MEDS: SERTRALINE HCL 25 MG TABLET PO SCH (09:01)
[2016-06-30 14:00] VITALS: BP 121/64
[2016-06-30 22:00] VITALS: BP 113/57
[2016-07-01] MEDS: CIPROFLOXACIN 250 MG TAB PO SCH (05:52)
[2016-07-01] MEDS: metroNIDAZOLE (FLAGYL) 500 MG TAB PO SCH (05:52)
[2016-07-01 06:00] VITALS: BP 117/56
[2016-07-01] MEDS: ENOXAPARIN 40 MG/0.4 ML SYRINGE (J1650) SC SCH (09:58)
[2016-07-01] MEDS: SERTRALINE HCL 25 MG TABLET PO SCH (09:58)
[2016-07-01] MEDS: ASPIRIN 81 MG ENTERIC TAB PO SCH (09:58)
[2016-07-01] MEDS: FOLIC ACID 1 MG TAB PO SCH (09:58)
[2016-07-01 14:00] VITALS: BP 127/72
[2016-07-01 22:00] VITALS: BP 136/63
[2016-07-02 06:00] VITALS: BP 137/76
[2016-07-02 07:46] LABS: MEAN CORPUSCULAR HEMOGLOBIN 30.2 pg (27.0-33.0); MEAN CORPUSCULAR HGB CONC 33.9 g/dl (32.0-36.5); MEAN CORPUSCULAR VOLUME 89.1 fl (80.0-96.0); RED CELL DISTRIBUTION WIDTH 13.8 % (11.5-14.5); WHITE BLOOD COUNT 8.7 K/mm3 (4.0-10.0)
[2016-07-02 08:07] LABS: ANION GAP 8 MEQ/L (8-16); BLOOD UREA NITROGEN 15 MG/DL (7-18); CALCIUM LEVEL 8.7 MG/DL (8.8-10.2); CARBON DIOXIDE LEVEL 28 MEQ/L (21-32); CHLORIDE LEVEL 104 MEQ/L (98-107); CREATININE FOR GFR 0.73 MG/DL (0.70-1.30); GLOMERULAR FILTRATION RATE > 60.0 (>49); GLUCOSE, FASTING 99 MG/DL (80-110); POTASSIUM SERUM 3.9 MEQ/L (3.5-5.1); SODIUM LEVEL 140 MEQ/L (136-145)
[2016-07-02] MEDS: SERTRALINE HCL 25 MG TABLET PO SCH (09:19)
[2016-07-02] MEDS: ASPIRIN 81 MG ENTERIC TAB PO SCH (09:19)
[2016-07-02] MEDS: FOLIC ACID 1 MG TAB PO SCH (09:19)
[2016-07-02] MEDS: ENOXAPARIN 40 MG/0.4 ML SYRINGE (J1650) SC SCH (09:19)
[2016-07-03 06:00] VITALS: BP 116/60
[2016-07-03] MEDS ORDERED: ATOR40TA PO (06:00)
[2016-07-03] MEDS: FOLIC ACID 1 MG TAB PO SCH (09:19)
[2016-07-03] MEDS: ASPIRIN 81 MG ENTERIC TAB PO SCH (09:19)
[2016-07-03] MEDS: ENOXAPARIN 40 MG/0.4 ML SYRINGE (J1650) SC SCH (09:19)
[2016-07-03] MEDS: SERTRALINE HCL 25 MG TABLET PO SCH (09:19)
--- NOTE | 2016-07-03 16:40 | DSES ---
DATE OF ADMISSION: 06/22/2016 DATE OF DISCHARGE: 07/03/2016 PRIMARY CARE PROVIDER: Dr. Duffy. DISCHARGE DIAGNOSES: 1. Diabetic colitis, treated. 2. History of cerebrovascular accident with right-sided residual hemiparesis and aphasia. 3. Percutaneous endoscopic gastrostomy (PEG) tube in place; however, not being used as patient can take food orally. 4. Gait instability. 5. Hypertension. 6. Hyperlipidemia. 7. Diastolic congestive heart failure. 8. Adrenal nodule 1.7 cm on the right. 9. Mood disorder. DISCHARGE MEDICATIONS: - aspirin 81 mg daily - atorvastatin 40 mg at bedtime - folic acid 1 mg daily - Tylenol 325 mg by mouth every 4 hours as needed - sertraline 25 mg by mouth daily HOSPITAL COURSE: This is a 66-year-old male who lived alone at home with some home services, was brought in by healthcare proxy because of low blood pressure and fevers. In the emergency department (ED), patient did not have any low blood pressures, but did have low-grade temperature of 100.8. Patient did complain of some abdominal discomfort, so had a CT abdomen and pelvis done, which showed sigmoid diverticulosis, with some possibility of mild diverticulitis. The patient was admitted for diverticulitis managed with ciprofloxacin and Flagyl, with resolution of symptoms; however, patient had gait stability and difficulty with his activities of daily living (ADLs). Patient was unkempt when he came in, unable to take proper care of himself, so he was felt to be not a candidate to be discharged home to self-care, so the patient was placed for evaluation for shelter half-way placement. At that point, patient was moved to alternate level of care, awaiting availability of a half-way bed. Patient was evaluated by physical therapy (PT) and occupational therapy (OT) in the hospital, as well as speech therapy. Patient does understand questions and answers with thumbs up or thumbs down sign and can also read; however, he cannot verbalize. At present, patient's vitals are stable. Functionally, patient is at baseline and patient is going to be discharged to shelter half-way care. PHYSICAL EXAMINATION: VITAL SIGNS: Temperature 97.4, pulse 87, respiratory rate 16, blood pressure 116/60, pulse oximetry 93% in room air. GENERAL: Patient awake and alert. Communicates with thumbs up or thumbs down signs. Seems to understand written documents. HEENT: Normocephalic, atraumatic. Moist mucous membranes. Anicteric eyes. CHEST: Clear to auscultation. CARDIOVASCULAR: S1, S2. Regular. There is a systolic murmur present. No gallop or rub. ABDOMEN: Soft, nontender. Bowel sounds present. EXTREMITIES: No edema. LABORATORY DATA: WBC 8.7, hemoglobin 13.9, platelets 403. Sodium 140, potassium 3.9, chloride 104, bicarbonate 28, BUN 15, creatinine 0.7, calcium 8.7. DISPOSITION: Patient is discharged to [facility] ([facility] DISCHARGE INSTRUCTIONS: Patient is to follow up with physician at the half-way. Soft diet. Activity as tolerated. Patient should be continued on speech therapy, as patient's communication may improve.
== END 2016-07-03 10:16 | DRG 392 ==
LOC: EDBD 17:14 → M ED 17:56 → M ED INP 06-22 01:04 → M MS5PR 06-22 14:15
PROVIDERS: ADMIT Internal Medicine; ATTEND Internal Medicine Nephrology
DX: K57.92 Diverticulitis of intestine, part unspecified, without perforation or abscess without bleeding (principal); I69.351 Hemiplegia and hemiparesis following cerebral infarction affecting right dominant side; I50.30 Unspecified diastolic (congestive) heart failure; E87.1 Hypo-osmolality and hyponatremia; I95.9 Hypotension, unspecified; I69.320 Aphasia following cerebral infarction; E27.9 Disorder of adrenal gland, unspecified; I10 Essential (primary) hypertension; E78.5 Hyperlipidemia, unspecified; F39 Unspecified mood [affective] disorder; F10.21 Alcohol dependence, in remission; R26.81 Unsteadiness on feet; Z93.1 Gastrostomy status; Z79.82 Long term (current) use of aspirin; Z79.899 Other long term (current) drug therapy; Z87.891 Personal history of nicotine dependence

== ENCOUNTER 2016-07-29 17:09 | Emergency (ER) | payer MEDICARE, MEDICAID ==
[~2016-07-29] VITALS: Ht 172.7 cm; Wt 73.0 kg
[~2016-07-29 17:09] MED LIST changes: +APAP325T PO; +ASPI81TA21 PO; +ATOR1TAB21 PO; +ATOR40TA PO; +FOLI1TAB2 PO; +FOLI5INJ2 SC; +LISI-538 PO; +SERT25TA PO
[2016-07-29] MEDS ORDERED: LISI-538 PO (17:38)
[2016-07-29] MEDS ORDERED: ZOLO25TA PO (17:41)
[2016-07-29 18:42] LABS: BASO % 0.3 % (0.0-1.0); EOS # 0.1 K/mm3 (0.0-0.50); EOS % 1.1 % (0.0-3.0); LARGE UNSTAINED CELL # 0.1 K/mm3 (0.0-0.4); LARGE UNSTAINED CELL % 0.8 % (0.0-4.0); LYMPH # 1.4 K/mm3 (1.5-4.5); LYMPH % 10.4 % (24.0-44.0); MEAN CORPUSCULAR HEMOGLOBIN 29.3 pg (27.0-33.0); MEAN CORPUSCULAR HGB CONC 33.1 g/dl (32.0-36.5); MEAN CORPUSCULAR VOLUME 88.6 fl (80.0-96.0); MONO # 0.5 K/mm3 (0.0-0.8); MONO % 3.5 % (0.0-5.0); NEUTROPHILS # 11.1 K/mm3 (1.8-7.7); NEUTROPHILS % 83.9 % (36.0-66.0); PLATELET COUNT, AUTOMATED 316 k/mm3 (150-450); RED CELL DISTRIBUTION WIDTH 13.1 % (11.5-14.5); WHITE BLOOD COUNT 13.2 K/mm3 (4.0-10.0)
[2016-07-29 19:01] LABS: ALBUMIN 3.8 GM/DL (3.2-5.2); ALKALINE PHOSPHATASE 141 U/L (45-117); ALT/SGPT 45 U/L (12-78); ANION GAP 9 MEQ/L (8-16); AST/SGOT 20 U/L (15-37); BILIRUBIN,DIRECT 0.2 MG/DL (0.0-0.2); BILIRUBIN,TOTAL 0.4 MG/DL (0.2-1.0); BLOOD UREA NITROGEN 15 MG/DL (7-18); CALCIUM LEVEL 8.9 MG/DL (8.8-10.2); CARBON DIOXIDE LEVEL 29 MEQ/L (21-32); CHLORIDE LEVEL 101 MEQ/L (98-107); CREATININE FOR GFR 0.85 MG/DL (0.70-1.30); GLOMERULAR FILTRATION RATE > 60.0 (>49); GLUCOSE, FASTING 96 MG/DL (80-110); SODIUM LEVEL 139 MEQ/L (136-145); TOTAL PROTEIN 7.6 GM/DL (6.4-8.2)
[2016-07-29] MEDS ORDERED: levETIRAcetam INJection 1,000 MG in D5W 100 ML IV ONE (20:45)
[2016-07-29] MEDS ORDERED: KEPP1TAB2 PO (22:20)
[2016-07-29 22:41] VITALS: BP 106/62
--- NOTE | 2016-07-30 08:41 | ECGEPIP ---
Stationary ECG Study [facility] - ED Test Date: 2016-07-29 Pat Name: JIA DURAN Department: Room: - Gender: M Software Development Advisor: aly : [id number] Requested By: Bisi Neely Order Number: [id number] Reading MD: Bisi Neely Measurements Intervals [place] Rate: 92 P: 31 AR: 147 QRS: 44 QRSD: 101 T: 70 QT: 354 QTc: 438 Interpretive Statements SINUS RHYTHM NONSPECIFIC T-WAVE ABNORMALITY SIMILAR 06/21/16 Electronically Signed On 07-30-2016 8:41:16 EDT by Bisi Neely
--- NOTE | 2016-08-03 16:51 | REP ---
CT BRAIN WITHOUT CONTRAST: HISTORY: Altered mental status. COMPARISON: 06/09/2013 Since the last examination a large approximately 10 x 3.6 cm sized area of diffuse low density has developed in the left cerebral hemisphere particularly parietal lobe abutting both frontal parietal regions and occipital parietal regions, nearly the complete girth of the left parietal lobe. There is associated ipsilateral colpocephaly. Due to the impending volume loss there is a mild shift of the midline structures to the ipsilateral side. No abnormal increased density is present that would be considered consistent with an acute hemorrhage. The posterior fossa is unchanged remaining within normal limits. The skull, imaged paranasal sinuses and mastoid air cells are unchanged. IMPRESSION: Large nonacute left parietal lobe infarction with resultant findings as described above. Signed by Ovidio Corbin DO 08/04/2016 09:34 A
== END 2016-07-29 23:01 | disposition home or self-care (01) ==
LOC: EDBD 17:09 → M ED 18:27
DX: R56.9 Unspecified convulsions (principal); I63.9 Cerebral infarction, unspecified; Z86.73 Personal history of transient ischemic attack (TIA), and cerebral infarction without residual deficits; Z79.82 Long term (current) use of aspirin; Z79.899 Other long term (current) drug therapy
CPT/HCPCS: 36415; 70450; 80048; 80076; 82550; 82553; 84443; 84484; 85025; 93005; 93041; 94760; 96374; 99285; J1953

== ENCOUNTER → 2016-10-15 | Outpatient (REF) | payer MEDICARE, MEDICAID ==
[~2016-10-15] MED LIST changes: -APAP325T PO; +APAP325T4 PO; -ATOR40TA PO; +ATOR40TA75 PO; -FOLI1TAB2 PO; +FOLI1TAB4 PO; +KEPP1TAB2 PO; +ZOLO25TA PO
[2016-10-15 09:36] LABS: BASO % 0.8 % (0.0-1.0); EOS # 0.2 K/mm3 (0.0-0.50); EOS % 3.1 % (0.0-3.0); LARGE UNSTAINED CELL # 0.1 K/mm3 (0.0-0.4); LARGE UNSTAINED CELL % 1.8 % (0.0-4.0); LYMPH # 1.8 K/mm3 (1.5-4.5); LYMPH % 30.8 % (24.0-44.0); MEAN CORPUSCULAR HEMOGLOBIN 29.9 pg (27.0-33.0); MEAN CORPUSCULAR HGB CONC 32.9 g/dl (32.0-36.5); MEAN CORPUSCULAR VOLUME 90.7 fl (80.0-96.0); MONO # 0.3 K/mm3 (0.0-0.8); MONO % 5.7 % (0.0-5.0); NEUTROPHILS # 3.5 K/mm3 (1.8-7.7); NEUTROPHILS % 57.8 % (36.0-66.0); PLATELET COUNT, AUTOMATED 249 k/mm3 (150-450)
[2016-10-15 10:58] LABS: ALBUMIN 3.6 GM/DL (3.2-5.2); ALBUMIN/GLOBULIN RATIO 1.13 (1.00-1.93); ALKALINE PHOSPHATASE 113 U/L (45-117); ALT/SGPT 35 U/L (12-78); ANION GAP 6 MEQ/L (8-16); AST/SGOT 14 U/L (15-37); BILIRUBIN,TOTAL 0.6 MG/DL (0.2-1.0); BLOOD UREA NITROGEN 19 MG/DL (7-18); CALCIUM LEVEL 8.9 MG/DL (8.8-10.2); CARBON DIOXIDE LEVEL 33 MEQ/L (21-32); CHLORIDE LEVEL 104 MEQ/L (98-107); CHOLESTEROL LEVEL 137 MG/DL (<200); CREATININE FOR GFR 0.79 MG/DL (0.70-1.30); GLOMERULAR FILTRATION RATE > 60.0 (>49); GLUCOSE, FASTING 115 MG/DL (80-110); POTASSIUM SERUM 3.9 MEQ/L (3.5-5.1); SODIUM LEVEL 143 MEQ/L (136-145); TOTAL PROTEIN 6.8 GM/DL (6.4-8.2); TRIGLYCERIDES LEVEL 95 MG/DL (<150)
== END ==
LOC: SKLAB5 08:15
PROVIDERS: ATTEND Family Medicine
DX: I11.0 Hypertensive heart disease with heart failure (principal); I50.30 Unspecified diastolic (congestive) heart failure

== ENCOUNTER → 2016-10-29 | Outpatient (REF) | payer MEDICARE, MEDICAID ==
[2016-10-29 12:52] LABS: BASO # 0.1 K/mm3 (0.0-0.2); BASO % 0.9 % (0.0-1.0); EOS # 0.3 K/mm3 (0.0-0.50); EOS % 3.3 % (0.0-3.0); LARGE UNSTAINED CELL # 0.2 K/mm3 (0.0-0.4); LARGE UNSTAINED CELL % 1.8 % (0.0-4.0); LYMPH # 2.3 K/mm3 (1.5-4.5); MEAN CORPUSCULAR HEMOGLOBIN 30.2 pg (27.0-33.0); MEAN CORPUSCULAR HGB CONC 33.7 g/dl (32.0-36.5); MEAN CORPUSCULAR VOLUME 89.6 fl (80.0-96.0); MONO # 0.6 K/mm3 (0.0-0.8); MONO % 5.9 % (0.0-5.0); NEUTROPHILS # 6.4 K/mm3 (1.8-7.7); NEUTROPHILS % 66.1 % (36.0-66.0); PLATELET COUNT, AUTOMATED 297 k/mm3 (150-450); RED CELL DISTRIBUTION WIDTH 12.9 % (11.5-14.5); WHITE BLOOD COUNT 9.7 K/mm3 (4.0-10.0)
--- NOTE | 2016-10-29 15:59 | REP ---
Portable chest, single AP view, the patient sitting, 03:42 p.m.: Comparison is 06/21/2016. There are sternotomy wires, unchanged. Cardiac size is normal for portable positioning. The lung mayorga are clear. The avel, mediastinum, and bony thorax are unremarkable. Impression: Essentially negative portable chest. Signed by Fidencio Lamb MD 10/29/2016 03:50 P
== END ==
LOC: SKLAB5 11:04
PROVIDERS: ATTEND Family Medicine
DX: R05 Cough (principal); R50.9 Fever, unspecified

== ENCOUNTER 2016-11-11 18:44 | Emergency (ER) | payer MEDICARE, MEDICAID ==
[~2016-11-11] VITALS: Ht 172.7 cm; Wt 78.0 kg
--- NOTE | 2016-11-11 19:57 | REP ---
Right hip and AP pelvis: The right hip two views: Mineralization and joint space are normal. There is no fracture or dislocation. There are no unusual calcifications. There is a small coiled spurring artifact superimposed over the medial thigh, possibly a foreign body. Impression No fracture or dislocation. Question foreign body in the medial thigh soft tissues. AP pelvis: There is no pelvic fracture. The sacroiliac articulations are unremarkable. The right left hip articulations are unremarkable. There are pelvic calcifications, likely phleboliths. Signed by Fidencio Lamb MD 11/11/2016 07:48 P
[2016-11-11] MEDS ORDERED: NORCO, ANEXSIA 5/325MG TABLET (HYDROcodone/ACETAMINOPHEN) PO ONE (20:00)
[2016-11-11 21:14] VITALS: BP 129/76
== END 2016-11-11 22:26 | disposition home or self-care (01) ==
LOC: M ED 18:44 → EDBD 18:44 → M ED 22:26
DX: S70.01XA Contusion of right hip, initial encounter (principal); W05.0XXA Fall from non-moving wheelchair, initial encounter; Y92.129 Unspecified place in nursing home as the place of occurrence of the external cause; Y93.89 Activity, other specified; Y99.8 Other external cause status; G40.909 Epilepsy, unspecified, not intractable, without status epilepticus; E78.5 Hyperlipidemia, unspecified; F43.10 Post-traumatic stress disorder, unspecified; F41.9 Anxiety disorder, unspecified; F32.9 Major depressive disorder, single episode, unspecified; Z86.73 Personal history of transient ischemic attack (TIA), and cerebral infarction without residual deficits; Z79.82 Long term (current) use of aspirin; Z79.899 Other long term (current) drug therapy

== ENCOUNTER → 2017-04-15 | Outpatient (REF) | payer MEDICARE, MEDICAID ==
[2017-04-15 09:07] LABS: BASO # 0.1 10^3/uL (0.0-0.2); BASO % 0.9 % (0.0-1.0); EOS # 0.3 10^3/uL (0.0-0.50); EOS % 4.7 % (0.0-3.0); HEMATOCRIT 45.1 % (42.0-52.0); IMMATURE GRANULOCYTE # 0.1 10^3/uL (0-0); IMMATURE GRANULOCYTE % 0.9 % (0-0); LYMPH # 2.5 10^3/uL (1.5-4.5); LYMPH % 38.3 % (24.0-44.0); MEAN CORPUSCULAR HEMOGLOBIN 29.4 pg (27.0-33.0); MEAN CORPUSCULAR HGB CONC 33.3 g/dl (32.0-36.5); MEAN CORPUSCULAR VOLUME 88.4 fl (80.0-96.0); MONO # 0.4 10^3/uL (0.0-0.8); NEUTROPHILS # 3.3 10^3/uL (1.8-7.7); NEUTROPHILS % 49.2 % (36.0-66.0); PLATELET COUNT, AUTOMATED 275 10^3/uL (150-450); RED CELL DISTRIBUTION WIDTH 12.9 % (11.5-14.5); WHITE BLOOD COUNT 6.6 10^3/uL (4.0-10.0)
[2017-04-15 09:27] LABS: ALBUMIN 3.8 GM/DL (3.2-5.2); ALBUMIN/GLOBULIN RATIO 1.31 (1.00-1.93); ALKALINE PHOSPHATASE 124 U/L (45-117); ALT/SGPT 50 U/L (12-78); ANION GAP 8 MEQ/L (8-16); AST/SGOT 27 U/L (7-37); BILIRUBIN,TOTAL 0.7 MG/DL (0.2-1.0); BLOOD UREA NITROGEN 15 MG/DL (7-18); CALCIUM LEVEL 8.8 MG/DL (8.8-10.2); CARBON DIOXIDE LEVEL 32 MEQ/L (21-32); CHLORIDE LEVEL 103 MEQ/L (98-107); CHOLESTEROL LEVEL 155 MG/DL (<200); CHOLESTEROL RISK RATIO 3.444 (<5); GLOMERULAR FILTRATION RATE > 60.0 (>49); GLUCOSE, FASTING 143 MG/DL (80-110); HDL CHOLESTEROL 45 MG/DL (>40); LDL CHOLESTEROL 80.4 MG/DL (<100); NON-HDL-C 110 MG/DL; POTASSIUM SERUM 3.8 MEQ/L (3.5-5.1); SODIUM LEVEL 143 MEQ/L (136-145); TOTAL PROTEIN 6.7 GM/DL (6.4-8.2); TRIGLYCERIDES LEVEL 148 MG/DL (<150)
== END ==
LOC: SKLAB5 07:52
DX: I50.9 Heart failure, unspecified (principal); E78.5 Hyperlipidemia, unspecified; Z86.73 Personal history of transient ischemic attack (TIA), and cerebral infarction without residual deficits
CPT/HCPCS: 80053

== ENCOUNTER → 2017-07-28 | Outpatient (REF) | payer MEDICARE, MEDICAID ==
[2017-07-28 18:30] LABS: HEMATOCRIT 44.8 % (42.0-52.0); HEMOGLOBIN 15.2 g/dl (13.5-17.5); MEAN CORPUSCULAR HGB CONC 33.9 g/dl (32.0-36.5); MEAN CORPUSCULAR VOLUME 88.5 fl (80.0-96.0); PLATELET COUNT, AUTOMATED 245 10^3/uL (150-450); RED BLOOD COUNT 5.06 10^6/uL (4.30-6.10); RED CELL DISTRIBUTION WIDTH 13.1 % (11.5-14.5); WHITE BLOOD COUNT 14.3 10^3/uL (4.0-10.0)
[2017-07-28 18:54] LABS: ALBUMIN 3.8 GM/DL (3.2-5.2); ALBUMIN/GLOBULIN RATIO 1.09 (1.00-1.93); ALKALINE PHOSPHATASE 111 U/L (45-117); ALT/SGPT 42 U/L (12-78); ANION GAP 8 MEQ/L (8-16); AST/SGOT 20 U/L (7-37); BILIRUBIN,TOTAL 0.9 MG/DL (0.2-1.0); BLOOD UREA NITROGEN 22 MG/DL (7-18); CALCIUM LEVEL 8.8 MG/DL (8.8-10.2); CARBON DIOXIDE LEVEL 28 MEQ/L (21-32); CHLORIDE LEVEL 102 MEQ/L (98-107); CREATININE FOR GFR 0.99 MG/DL (0.70-1.30); GLOMERULAR FILTRATION RATE > 60.0 (>49); GLUCOSE, FASTING 125 MG/DL (70-100); POTASSIUM SERUM 4.3 MEQ/L (3.5-5.1); SODIUM LEVEL 138 MEQ/L (136-145); TOTAL PROTEIN 7.3 GM/DL (6.4-8.2)
[2017-07-28 19:38] LABS: INFLUENZA A AMPLIFICATION NEGATIVE (NEGATIVE); INFLUENZA B AMPLIFICATION NEGATIVE (NEGATIVE)
== END ==
LOC: M LAB REF 16:01
DX: R56.9 Unspecified convulsions (principal)
CPT/HCPCS: 80053

== ENCOUNTER → 2017-07-28 | Outpatient (REF) | LOC: M RAD 17:45 | DX: R50.9 Fever, unspecified (principal) ==

== ENCOUNTER → 2017-07-28 | Outpatient (REF) | payer MEDICARE, MEDICAID | LOC: SKLAB5 18:46 | DX: R50.9 Fever, unspecified (principal) ==

== ENCOUNTER → 2017-07-29 | Outpatient (REF) | payer MEDICARE, MEDICAID | LOC: SKLAB5 10:46 | DX: R00.0 Tachycardia, unspecified (principal) | CPT/HCPCS: 93005 ==

== ENCOUNTER → 2017-08-30 | Outpatient (REF) | payer MEDICARE, MEDICAID ==
[2017-09-01 14:15] LABS: LEVETIRACETAM (KEPPRA) 12.4 ug/mL (10.0-40.0)
== END ==
LOC: SKLAB5 08:04
DX: R56.9 Unspecified convulsions (principal)
CPT/HCPCS: 36415

== ENCOUNTER → 2017-10-14 | Outpatient (REF) | payer MEDICARE, MEDICAID ==
[2017-10-14 08:46] LABS: BASO # 0.1 10^3/uL (0.0-0.2); BASO % 0.7 % (0.0-1.0); EOS # 0.2 10^3/uL (0.0-0.50); EOS % 2.5 % (0.0-3.0); HEMATOCRIT 43.9 % (42.0-52.0); HEMOGLOBIN 14.6 g/dl (13.5-17.5); IMMATURE GRANULOCYTE % 0.6 % (0-3.0); LYMPH # 1.9 10^3/uL (1.5-4.5); LYMPH % 28.2 % (24.0-44.0); MEAN CORPUSCULAR HEMOGLOBIN 29.4 pg (27.0-33.0); MEAN CORPUSCULAR HGB CONC 33.3 g/dl (32.0-36.5); MEAN CORPUSCULAR VOLUME 88.5 fl (80.0-96.0); MONO # 0.5 10^3/uL (0.0-0.8); MONO % 7.2 % (0.0-5.0); NEUTROPHILS # 4.2 10^3/uL (1.8-7.7); NEUTROPHILS % 60.8 % (36.0-66.0); PLATELET COUNT, AUTOMATED 274 10^3/uL (150-450); RED BLOOD COUNT 4.96 10^6/uL (4.30-6.10); RED CELL DISTRIBUTION WIDTH 12.7 % (11.5-14.5); WHITE BLOOD COUNT 6.9 10^3/uL (4.0-10.0)
[2017-10-14 09:03] LABS: ALBUMIN 3.4 GM/DL (3.2-5.2); ALKALINE PHOSPHATASE 154 U/L (45-117); ALT/SGPT 37 U/L (12-78); ANION GAP 7 MEQ/L (8-16); AST/SGOT 17 U/L (7-37); BILIRUBIN,TOTAL 0.7 MG/DL (0.2-1.0); BLOOD UREA NITROGEN 16 MG/DL (7-18); CALCIUM LEVEL 8.2 MG/DL (8.8-10.2); CARBON DIOXIDE LEVEL 30 MEQ/L (21-32); CHLORIDE LEVEL 106 MEQ/L (98-107); CHOLESTEROL LEVEL 134 MG/DL (<200); CHOLESTEROL RISK RATIO 3.268 (<5); CREATININE FOR GFR 0.72 MG/DL (0.70-1.30); GLOMERULAR FILTRATION RATE > 60.0 (>49); GLUCOSE, FASTING 91 MG/DL (70-100); HDL CHOLESTEROL 41 MG/DL (>40); LDL CHOLESTEROL 76.2 MG/DL (<100); NON-HDL-C 93 MG/DL; POTASSIUM SERUM 4.1 MEQ/L (3.5-5.1); SODIUM LEVEL 143 MEQ/L (136-145); TOTAL PROTEIN 6.8 GM/DL (6.4-8.2); TRIGLYCERIDES LEVEL 84 MG/DL (<150)
== END ==
LOC: SKLAB5 07:20
DX: D64.9 Anemia, unspecified (principal); E78.5 Hyperlipidemia, unspecified
CPT/HCPCS: 80053

== ENCOUNTER → 2017-11-04 | Outpatient (REF) | payer MEDICARE, MEDICAID ==
[2017-11-04 09:00] LABS: ESTIMATED AVERAGE GLUCOSE 128 MG/DL (60-110); HEMOGLOBIN A1c 6.1 %
== END ==
LOC: SKLAB5 08:09
DX: E11.9 Type 2 diabetes mellitus without complications (principal)
CPT/HCPCS: 83036

== ENCOUNTER → 2018-02-23 | Outpatient (CLI) | payer MEDICARE, MEDICAID ==
[2018-02-23 23:46] LABS: APPEARANCE, URINE CLEAR (CLEAR); BACTERIA, URINE AUTO NEGATIVE (NEGATIVE); BILIRUBIN, URINE AUTO NEGATIVE (NEGATIVE); BLOOD, URINE BLOOD NEGATIVE (NEGATIVE); COLOR, URINE YELLOW (YELLOW); GLUCOSE, URINE (UA) AUTO NEGATIVE (NEGATIVE); KETONE, URINE AUTO NEGATIVE (NEGATIVE); LEUKOCYTE ESTERASE, URINE AUTO NEGATIVE (NEGATIVE); MUCUS, URINE SMALL (NEGATIVE); NITRITE, URINE AUTO NEGATIVE (NEGATIVE); PROTEIN, URINE AUTO NEGATIVE (NEGATIVE); RBC, URINE AUTO 3 /HPF (0-3); SPECIFIC GRAVITY URINE AUTO 1.017 (1.002-1.035); SQUAMOUS EPITHELIAL CELL UR AU 0 /HPF (0-6); WBC, URINE AUTO 1 /HPF (0-3)
== END ==
LOC: SKLAB5 23:09
DX: R30.9 Painful micturition, unspecified (principal)
CPT/HCPCS: 81001

== ENCOUNTER → 2018-02-24 | Outpatient (REF) | payer MEDICARE, MEDICAID ==
[2018-02-24 10:07] LABS: BASO # 0.1 10^3/uL (0.0-0.2); BASO % 0.5 % (0.0-1.0); EOS % 0.3 % (0.0-3.0); HEMATOCRIT 46.9 % (42.0-52.0); HEMOGLOBIN 15.6 g/dl (13.5-17.5); IMMATURE GRANULOCYTE % 0.4 % (0-3.0); LYMPH # 1.5 10^3/uL (1.5-4.5); LYMPH % 15.1 % (24.0-44.0); MEAN CORPUSCULAR HEMOGLOBIN 29.2 pg (27.0-33.0); MEAN CORPUSCULAR HGB CONC 33.3 g/dl (32.0-36.5); MEAN CORPUSCULAR VOLUME 87.8 fl (80.0-96.0); MONO # 0.7 10^3/uL (0.0-0.8); MONO % 6.7 % (0.0-5.0); NEUTROPHILS # 7.5 10^3/uL (1.8-7.7); PLATELET COUNT, AUTOMATED 281 10^3/uL (150-450); RED BLOOD COUNT 5.34 10^6/uL (4.30-6.10); RED CELL DISTRIBUTION WIDTH 13.1 % (11.5-14.5); WHITE BLOOD COUNT 9.8 10^3/uL (4.0-10.0)
[2018-02-24 10:30] LABS: ANION GAP 9 MEQ/L (8-16); BLOOD UREA NITROGEN 15 MG/DL (7-18); CALCIUM LEVEL 8.8 MG/DL (8.8-10.2); CARBON DIOXIDE LEVEL 30 MEQ/L (21-32); CHLORIDE LEVEL 99 MEQ/L (98-107); CREATININE FOR GFR 0.93 MG/DL (0.70-1.30); GLOMERULAR FILTRATION RATE > 60.0 (>42); GLUCOSE, FASTING 129 MG/DL (70-100); POTASSIUM SERUM 3.9 MEQ/L (3.5-5.1); SODIUM LEVEL 138 MEQ/L (136-145)
[2018-02-24 10:33] LABS: ALBUMIN 3.7 GM/DL (3.2-5.2); ALBUMIN/GLOBULIN RATIO 1.09 (1.00-1.93); ALKALINE PHOSPHATASE 148 U/L (45-117); ALT/SGPT 30 U/L (12-78); AST/SGOT 18 U/L (7-37); BILIRUBIN,DIRECT 0.3 MG/DL (0.0-0.2); BILIRUBIN,TOTAL 1.1 MG/DL (0.2-1.0); TOTAL PROTEIN 7.1 GM/DL (6.4-8.2)
== END ==
LOC: SKLAB5 05:49
DX: R32 Unspecified urinary incontinence (principal)
CPT/HCPCS: 80076

== ENCOUNTER → 2018-04-14 | Outpatient (REF) | payer MEDICARE, MEDICAID ==
[~2018-04-14] MED LIST changes: -FOLI1TAB4 PO; +FOLI1TAB5 PO
[2018-04-14 08:29] LABS: BASO # 0.1 10^3/uL (0.0-0.2); BASO % 0.9 % (0.0-1.0); EOS # 0.2 10^3/uL (0.0-0.50); EOS % 2.5 % (0.0-3.0); HEMATOCRIT 45.7 % (42.0-52.0); LYMPH # 2.2 10^3/uL (1.5-4.5); LYMPH % 34.5 % (24.0-44.0); MEAN CORPUSCULAR HEMOGLOBIN 29.2 pg (27.0-33.0); MEAN CORPUSCULAR HGB CONC 32.8 g/dl (32.0-36.5); MEAN CORPUSCULAR VOLUME 88.9 fl (80.0-96.0); MONO # 0.6 10^3/uL (0.0-0.8); MONO % 8.8 % (0.0-5.0); NEUTROPHILS # 3.3 10^3/uL (1.8-7.7); NEUTROPHILS % 52.7 % (36.0-66.0); PLATELET COUNT, AUTOMATED 272 10^3/uL (150-450); RED BLOOD COUNT 5.14 10^6/uL (4.30-6.10); WHITE BLOOD COUNT 6.3 10^3/uL (4.0-10.0)
[2018-04-14 09:07] LABS: ALBUMIN 3.5 GM/DL (3.2-5.2); ALT/SGPT 33 U/L (12-78); BILIRUBIN,TOTAL 0.7 MG/DL (0.2-1.0); BLOOD UREA NITROGEN 12 MG/DL (7-18); CALCIUM LEVEL 8.6 MG/DL (8.8-10.2); CARBON DIOXIDE LEVEL 32 MEQ/L (21-32); CHLORIDE LEVEL 103 MEQ/L (98-107); CHOLESTEROL LEVEL 136 MG/DL (<200); CREATININE FOR GFR 0.84 MG/DL (0.70-1.30); GLOMERULAR FILTRATION RATE > 60.0 (>42); GLUCOSE, FASTING 87 MG/DL (70-100); HDL CHOLESTEROL 40 MG/DL (>40); LDL CHOLESTEROL 77 MG/DL (<100); NON-HDL-C 96 MG/DL; POTASSIUM SERUM 4.4 MEQ/L (3.5-5.1); SODIUM LEVEL 140 MEQ/L (136-145); TOTAL PROTEIN 6.6 GM/DL (6.4-8.2); TRIGLYCERIDES LEVEL 97 MG/DL (<150)
== END ==
LOC: SKLAB5 08:04
PROVIDERS: ATTEND Family Medicine
DX: I50.9 Heart failure, unspecified (principal); E78.5 Hyperlipidemia, unspecified; I10 Essential (primary) hypertension

== ENCOUNTER → 2018-10-14 | Outpatient (REF) | payer MEDICARE, MEDICAID ==
[~2018-10-14] MED LIST changes: -/ATOR40TA PO; +FOLI1TAB11 PO; -FOLI1TAB5 PO; +LIPI1TAB2 PO; +NICO21DI3 EXT; -NICO21PAT EXT; -SERT25TA PO; +SERT25TA85 PO
[2018-10-14 07:53] LABS: BASO # 0.1 10^3/uL (0.0-0.2); BASO % 0.7 % (0.0-1.0); EOS # 0.2 10^3/uL (0.0-0.50); EOS % 2.7 % (0.0-3.0); HEMATOCRIT 45.6 % (42.0-52.0); HEMOGLOBIN 15.1 g/dl (13.5-17.5); LYMPH # 1.9 10^3/uL (1.5-4.5); LYMPH % 27.9 % (24.0-44.0); MEAN CORPUSCULAR HGB CONC 33.1 g/dl (32.0-36.5); MEAN CORPUSCULAR VOLUME 90.7 fl (80.0-96.0); MONO # 0.6 10^3/uL (0.0-0.8); MONO % 9.3 % (0.0-5.0); NEUTROPHILS % 58.7 % (36.0-66.0); PLATELET COUNT, AUTOMATED 246 10^3/uL (150-450); RED BLOOD COUNT 5.03 10^6/uL (4.30-6.10); WHITE BLOOD COUNT 6.8 10^3/uL (4.0-10.0)
[2018-10-14 08:20] LABS: ALBUMIN 3.5 GM/DL (3.2-5.2); ALT/SGPT 31 U/L (12-78); BILIRUBIN,TOTAL 0.8 MG/DL (0.2-1.0); BLOOD UREA NITROGEN 15 MG/DL (7-18); CALCIUM LEVEL 8.8 MG/DL (8.8-10.2); CARBON DIOXIDE LEVEL 31 MEQ/L (21-32); CHLORIDE LEVEL 104 MEQ/L (98-107); CHOLESTEROL LEVEL 140 MG/DL (<200); CHOLESTEROL RISK RATIO 3.589 (<5); CREATININE FOR GFR 0.84 MG/DL (0.70-1.30); GLOMERULAR FILTRATION RATE > 60.0 (>42); GLUCOSE, FASTING 89 MG/DL (70-100); HDL CHOLESTEROL 39 MG/DL (>40); LDL CHOLESTEROL 82 MG/DL (<100); NON-HDL-C 101 MG/DL; POTASSIUM SERUM 3.9 MEQ/L (3.5-5.1); SODIUM LEVEL 141 MEQ/L (136-145); TOTAL PROTEIN 6.8 GM/DL (6.4-8.2); TRIGLYCERIDES LEVEL 97 MG/DL (<150)
== END ==
LOC: SKLAB5 12:09
PROVIDERS: ATTEND Family Medicine
DX: E78.5 Hyperlipidemia, unspecified (principal); I69.920 Aphasia following unspecified cerebrovascular disease

== ENCOUNTER → 2019-04-13 | Outpatient (REF) | payer MEDICARE, MEDICAID ==
[2019-04-13 09:27] LABS: BASO # 0.1 10^3/uL (0.0-0.2); BASO % 0.8 % (0.0-1.0); EOS # 0.2 10^3/uL (0.0-0.5); EOS % 2.5 % (0.0-3.0); HEMATOCRIT 48.8 % (42.0-52.0); HEMOGLOBIN 15.8 g/dl (13.5-17.5); LYMPH # 1.9 10^3/uL (1.5-5.0); LYMPH % 29.9 % (24.0-44.0); MEAN CORPUSCULAR HEMOGLOBIN 29.4 pg (27.0-33.0); MEAN CORPUSCULAR HGB CONC 32.4 g/dl (32.0-36.5); MEAN CORPUSCULAR VOLUME 90.7 fl (80.0-96.0); MONO # 0.4 10^3/uL (0.0-0.8); MONO % 6.6 % (0.0-5.0); NEUTROPHILS # 3.8 10^3/uL (1.5-8.5); NEUTROPHILS % 59.6 % (36.0-66.0); PLATELET COUNT, AUTOMATED 259 10^3/uL (150-450); RED BLOOD COUNT 5.38 10^6/uL (4.30-6.10); WHITE BLOOD COUNT 6.4 10^3/uL (4.0-10.0)
[2019-04-13 10:04] LABS: ALBUMIN 3.5 GM/DL (3.2-5.2); ALT/SGPT 31 U/L (12-78); BILIRUBIN,TOTAL 0.8 MG/DL (0.2-1.0); BLOOD UREA NITROGEN 10 MG/DL (7-18); CALCIUM LEVEL 9.1 MG/DL (8.8-10.2); CARBON DIOXIDE LEVEL 28 MEQ/L (21-32); CHLORIDE LEVEL 103 MEQ/L (98-107); CHOLESTEROL LEVEL 154 MG/DL (<200); CHOLESTEROL RISK RATIO 3.948 (<5); CREATININE FOR GFR 0.77 MG/DL (0.70-1.30); GLOMERULAR FILTRATION RATE > 60.0 (>42); GLUCOSE, FASTING 96 MG/DL (70-100); HDL CHOLESTEROL 39 MG/DL (>40); LDL CHOLESTEROL 92 MG/DL (<100); NON-HDL-C 115 MG/DL; POTASSIUM SERUM 3.4 MEQ/L (3.5-5.1); SODIUM LEVEL 140 MEQ/L (136-145); TOTAL PROTEIN 7.5 GM/DL (6.4-8.2); TRIGLYCERIDES LEVEL 113 MG/DL (<150)
== END ==
LOC: SKLAB5 07:42
PROVIDERS: ATTEND Family Medicine
DX: I50.9 Heart failure, unspecified (principal); E78.5 Hyperlipidemia, unspecified

== ENCOUNTER → 2019-08-21 | Outpatient (REF) | payer MEDICARE, MEDICAID ==
[2019-08-21 12:54] LABS: AMORPHOUS SEDIMENT MODERATE (NEGATIVE); APPEARANCE, URINE CLOUDY (CLEAR); BACTERIA, URINE AUTO NEGATIVE (NEGATIVE); BILIRUBIN, URINE AUTO NEGATIVE (NEGATIVE); BLOOD, URINE BLOOD NEGATIVE (NEGATIVE); COLOR, URINE YELLOW (YELLOW); GLUCOSE, URINE (UA) AUTO NEGATIVE (NEGATIVE); KETONE, URINE AUTO NEGATIVE (NEGATIVE); LEUKOCYTE ESTERASE, URINE AUTO NEGATIVE (NEGATIVE); MUCUS, URINE SMALL (NEGATIVE); NITRITE, URINE AUTO NEGATIVE (NEGATIVE); PROTEIN, URINE AUTO NEGATIVE (NEGATIVE); RBC, URINE AUTO 2 /HPF (0-3); SPECIFIC GRAVITY URINE AUTO 1.018 (1.002-1.035); SQUAMOUS EPITHELIAL CELL UR AU 0 /HPF (0-6); WBC, URINE AUTO 1 /HPF (0-3)
== END ==
LOC: SKLAB5 10:27
PROVIDERS: ATTEND Family Medicine
DX: R35.0 Frequency of micturition (principal)

== ENCOUNTER → 2019-08-23 | Outpatient (REF) | LOC: SKLAB5 14:45 | PROVIDERS: ATTEND Internal Medicine | DX: Z11.59 Encounter for screening for other viral diseases (principal); Z53.9 Procedure and treatment not carried out, unspecified reason ==

== ENCOUNTER → 2019-10-12 | Outpatient (REF) | payer MEDICARE, MEDICAID ==
[2019-10-12 08:16] LABS: BASO # 0.1 10^3/uL (0.0-0.2); BASO % 0.8 % (0.0-1.0); EOS # 0.2 10^3/uL (0.0-0.5); EOS % 2.6 % (0.0-3.0); HEMATOCRIT 47.7 % (42.0-52.0); HEMOGLOBIN 15.5 g/dl (13.5-17.5); LYMPH % 30.8 % (24.0-44.0); MEAN CORPUSCULAR HEMOGLOBIN 29.2 pg (27.0-33.0); MEAN CORPUSCULAR HGB CONC 32.5 g/dl (32.0-36.5); MEAN CORPUSCULAR VOLUME 89.8 fl (80.0-96.0); MONO # 0.5 10^3/uL (0.0-0.8); MONO % 8.3 % (0.0-5.0); NEUTROPHILS # 3.7 10^3/uL (1.5-8.5); NEUTROPHILS % 56.9 % (36.0-66.0); PLATELET COUNT, AUTOMATED 270 10^3/uL (150-450); RED BLOOD COUNT 5.31 10^6/uL (4.30-6.10); WHITE BLOOD COUNT 6.5 10^3/uL (4.0-10.0)
[2019-10-12 08:38] LABS: ALBUMIN 3.5 GM/DL (3.2-5.2); ALT/SGPT 36 U/L (12-78); BILIRUBIN,TOTAL 0.8 MG/DL (0.2-1.0); BLOOD UREA NITROGEN 10 MG/DL (7-18); CALCIUM LEVEL 8.9 MG/DL (8.8-10.2); CARBON DIOXIDE LEVEL 30 MEQ/L (21-32); CHLORIDE LEVEL 105 MEQ/L (98-107); CHOLESTEROL LEVEL 138 MG/DL (<200); CHOLESTEROL RISK RATIO 3.631 (<5); CREATININE FOR GFR 0.83 MG/DL (0.70-1.30); GLOMERULAR FILTRATION RATE > 60.0 (>42); GLUCOSE, FASTING 92 MG/DL (70-100); HDL CHOLESTEROL 38 MG/DL (>40); LDL CHOLESTEROL 79 MG/DL (<100); NON-HDL-C 100 MG/DL; POTASSIUM SERUM 4.1 MEQ/L (3.5-5.1); SODIUM LEVEL 141 MEQ/L (136-145); TOTAL PROTEIN 6.9 GM/DL (6.4-8.2); TRIGLYCERIDES LEVEL 103 MG/DL (<150)
== END ==
LOC: SKLAB5 08:11
PROVIDERS: ATTEND Family Medicine
DX: E78.5 Hyperlipidemia, unspecified (principal)

== ENCOUNTER → 2019-11-07 | Outpatient (REF) | payer MEDICARE, MEDICAID ==
[2019-12-23 19:50] LABS: CALCIUM LEVEL 9.1 MG/DL (8.8-10.2); CREATININE FOR GFR 1.35 MG/DL (0.70-1.30); GLOMERULAR FILTRATION RATE 55.5 (>42); POTASSIUM SERUM 3.9 MEQ/L (3.5-5.1)
[2019-12-23 20:20] LABS: HEMATOCRIT 48.9 % (42.0-52.0); HEMOGLOBIN 16.4 g/dl (13.5-17.5); MEAN CORPUSCULAR HEMOGLOBIN 29.7 pg (27.0-33.0); MEAN CORPUSCULAR HGB CONC 33.5 g/dl (32.0-36.5); MEAN CORPUSCULAR VOLUME 88.6 fl (80.0-96.0); PLATELET COUNT, AUTOMATED 298 10^3/uL (150-450); RED BLOOD COUNT 5.52 10^6/uL (4.30-6.10); WHITE BLOOD COUNT 12.2 10^3/uL (4.0-10.0)
== END ==
LOC: SKLAB5 09:59
PROVIDERS: ATTEND Family Medicine
DX: E78.5 Hyperlipidemia, unspecified (principal)

== ENCOUNTER → 2019-11-09 | Outpatient (REF) | payer MEDICARE, MEDICAID ==
[2019-12-21 11:13] LABS: BLOOD UREA NITROGEN 12 MG/DL (7-18); CALCIUM LEVEL 8.7 MG/DL (8.8-10.2); CARBON DIOXIDE LEVEL 35 MEQ/L (21-32); CHLORIDE LEVEL 103 MEQ/L (98-107); CREATININE FOR GFR 1.05 MG/DL (0.70-1.30); GLOMERULAR FILTRATION RATE > 60.0 (>42); GLUCOSE, FASTING 96 MG/DL (70-100); POTASSIUM SERUM 3.7 MEQ/L (3.5-5.1); SODIUM LEVEL 143 MEQ/L (136-145)
[2019-12-22 10:49] LABS: HEMATOCRIT 46.2 % (42.0-52.0); MEAN CORPUSCULAR HGB CONC 32.5 g/dl (32.0-36.5); MEAN CORPUSCULAR VOLUME 89.4 fl (80.0-96.0); PLATELET COUNT, AUTOMATED 272 10^3/uL (150-450); RED BLOOD COUNT 5.17 10^6/uL (4.30-6.10); WHITE BLOOD COUNT 6.7 10^3/uL (4.0-10.0)
== END ==
LOC: SKLAB5 09:28
DX: I50.9 Heart failure, unspecified (principal); E78.5 Hyperlipidemia, unspecified

== ENCOUNTER → 2019-11-10 | Outpatient (REF) | payer MEDICARE, MEDICAID ==
[2020-01-24 11:34] LABS: APPEARANCE, URINE CLEAR (CLEAR); BACTERIA, URINE AUTO 1+ (NEGATIVE); BILIRUBIN, URINE AUTO NEGATIVE (NEGATIVE); BLOOD, URINE BLOOD NEGATIVE (NEGATIVE); COLOR, URINE YELLOW (YELLOW); GLUCOSE, URINE (UA) AUTO NEGATIVE (NEGATIVE); KETONE, URINE AUTO NEGATIVE (NEGATIVE); LEUKOCYTE ESTERASE, URINE AUTO NEGATIVE (NEGATIVE); MUCUS, URINE SMALL (NEGATIVE); NITRITE, URINE AUTO NEGATIVE (NEGATIVE); PROTEIN, URINE AUTO NEGATIVE (NEGATIVE); RBC, URINE AUTO 5 /HPF (0-3); SPECIFIC GRAVITY URINE AUTO 1.015 (1.002-1.035); SQUAMOUS EPITHELIAL CELL UR AU 0 /HPF (0-6); WBC, URINE AUTO 6 /HPF (0-3)
== END ==
LOC: SKLAB5 12:09
DX: D72.829 Elevated white blood cell count, unspecified (principal)

== ENCOUNTER → 2019-12-14 | Outpatient (REF) | payer MEDICARE, MEDICAID | LOC: SKLAB5 06:35 | DX: G40.909 Epilepsy, unspecified, not intractable, without status epilepticus (principal) ==

== ENCOUNTER → 2020-02-13 | Outpatient (REF) | payer MEDICARE, MEDICAID | LOC: SKLAB5 08:00 | DX: Z79.899 Other long term (current) drug therapy (principal) ==

== ENCOUNTER 2020-02-27 15:12 | Outpatient (RCR) | END 2020-03-11 | LOC: SKLAB5 15:12 | DX: Z20.828 Contact with and (suspected) exposure to other viral communicable diseases (principal) ==

== ENCOUNTER → 2020-03-20 | Outpatient (REF) | payer MEDICARE, MEDICAID | LOC: SKLAB5 06:43 | PROVIDERS: ATTEND Family Medicine | DX: Z53.9 Procedure and treatment not carried out, unspecified reason (principal) ==

== ENCOUNTER → 2020-04-02 | Outpatient (REF) | payer MEDICARE, MEDICAID | LOC: SKLAB5 11:22 | DX: G40.909 Epilepsy, unspecified, not intractable, without status epilepticus (principal); Z79.899 Other long term (current) drug therapy ==

== ENCOUNTER → 2020-04-03 | Outpatient (REF) | payer MEDICARE, MEDICAID | LOC: SKLAB5 06:02 | DX: Z20.828 Contact with and (suspected) exposure to other viral communicable diseases (principal); Z53.9 Procedure and treatment not carried out, unspecified reason ==

== ENCOUNTER → 2020-04-10 | Outpatient (REF) | payer MEDICARE, MEDICAID | LOC: SKLAB5 06:32 | DX: Z53.9 Procedure and treatment not carried out, unspecified reason (principal) ==

== ENCOUNTER → 2020-04-17 | Outpatient (REF) | payer MEDICARE, MEDICAID | LOC: SKLAB5 07:03 | DX: Z53.9 Procedure and treatment not carried out, unspecified reason (principal) ==

== ENCOUNTER → 2020-04-18 | Outpatient (REF) | payer MEDICARE, MEDICAID ==
[2020-04-18 10:49] LABS: BASO # 0.1 10^3/uL (0.0-0.2); BASO % 0.8 % (0.0-1.0); EOS # 0.2 10^3/uL (0.0-0.5); EOS % 3.4 % (0.0-3.0); HEMATOCRIT 46.7 % (42.0-52.0); HEMOGLOBIN 14.8 g/dl (13.5-17.5); LYMPH # 1.8 10^3/uL (1.5-5.0); LYMPH % 28.5 % (24.0-44.0); MEAN CORPUSCULAR HEMOGLOBIN 28.2 pg (27.0-33.0); MEAN CORPUSCULAR HGB CONC 31.7 g/dl (32.0-36.5); MEAN CORPUSCULAR VOLUME 89.1 fl (80.0-96.0); MONO # 0.4 10^3/uL (0.0-0.8); MONO % 7.1 % (0.0-5.0); NEUTROPHILS # 3.7 10^3/uL (1.5-8.5); NEUTROPHILS % 59.7 % (36.0-66.0); PLATELET COUNT, AUTOMATED 271 10^3/uL (150-450); RED BLOOD COUNT 5.24 10^6/uL (4.30-6.10); WHITE BLOOD COUNT 6.2 10^3/uL (4.0-10.0)
[2020-04-18 11:24] LABS: ALBUMIN 3.4 GM/DL (3.2-5.2); ALT/SGPT 31 U/L (12-78); BILIRUBIN,TOTAL 0.6 MG/DL (0.2-1.0); BLOOD UREA NITROGEN 9 MG/DL (7-18); CALCIUM LEVEL 8.8 MG/DL (8.8-10.2); CARBON DIOXIDE LEVEL 29 MEQ/L (21-32); CHLORIDE LEVEL 103 MEQ/L (98-107); CHOLESTEROL LEVEL 152 MG/DL (<200); CREATININE FOR GFR 0.82 MG/DL (0.70-1.30); GLOMERULAR FILTRATION RATE > 60.0 (>42); GLUCOSE, FASTING 123 MG/DL (70-100); HDL CHOLESTEROL 40 MG/DL (>40); LDL CHOLESTEROL 83 MG/DL (<100); NON-HDL-C 112 MG/DL; POTASSIUM SERUM 3.7 MEQ/L (3.5-5.1); SODIUM LEVEL 139 MEQ/L (136-145); TOTAL PROTEIN 6.7 GM/DL (6.4-8.2); TRIGLYCERIDES LEVEL 144 MG/DL (<150)
== END ==
LOC: SKLAB5 09:03
DX: R56.9 Unspecified convulsions (principal); E78.5 Hyperlipidemia, unspecified

== ENCOUNTER → 2020-04-24 | Outpatient (REF) | payer MEDICARE, MEDICAID | LOC: SKLAB5 06:42 | PROVIDERS: ATTEND Internal Medicine | DX: Z20.822 Contact with and (suspected) exposure to COVID-19 (principal) ==

== ENCOUNTER → 2020-05-01 | Outpatient (REF) | payer MEDICARE, MEDICAID ==
[~2020-05-01] MED LIST changes: -LISI-538 PO; +LISI20TA33 PO
== END ==
LOC: SKLAB5 07:18
PROVIDERS: ATTEND Internal Medicine
DX: Z53.9 Procedure and treatment not carried out, unspecified reason (principal)

== ENCOUNTER → 2020-05-08 | Outpatient (REF) | payer MEDICARE, MEDICAID ==
[~2020-05-08] MED LIST changes: +LISI-538 PO; -LISI20TA33 PO
== END ==
LOC: SKLAB5 07:06
PROVIDERS: ATTEND Internal Medicine
DX: Z53.9 Procedure and treatment not carried out, unspecified reason (principal)

== ENCOUNTER → 2020-05-15 | Outpatient (REF) | payer MEDICARE, MEDICAID | LOC: SKLAB5 07:22 | PROVIDERS: ATTEND Internal Medicine | DX: Z53.9 Procedure and treatment not carried out, unspecified reason (principal) ==

== ENCOUNTER → 2020-05-22 | Outpatient (REF) | payer MEDICARE, MEDICAID ==
[~2020-05-22] MED LIST changes: -LISI-538 PO; +LISI20TA33 PO
== END ==
LOC: SKLAB5 06:25
PROVIDERS: ATTEND Internal Medicine
DX: Z20.822 Contact with and (suspected) exposure to COVID-19 (principal)

== ENCOUNTER → 2020-05-24 | Outpatient (REF) | payer MEDICARE, MEDICAID ==
[2020-05-24 09:51] LABS: BLOOD UREA NITROGEN 12 MG/DL (7-18); CALCIUM LEVEL 8.6 MG/DL (8.8-10.2); CARBON DIOXIDE LEVEL 31 MEQ/L (21-32); CHLORIDE LEVEL 102 MEQ/L (98-107); CREATININE FOR GFR 0.77 MG/DL (0.70-1.30); GLOMERULAR FILTRATION RATE > 60.0 (>42); GLUCOSE, FASTING 86 MG/DL (70-100); SODIUM LEVEL 140 MEQ/L (136-145)
== END ==
LOC: SKLAB5 05-23 08:00
DX: I10 Essential (primary) hypertension (principal)

== ENCOUNTER → 2020-05-29 | Outpatient (REF) | payer MEDICARE, MEDICAID | LOC: SKLAB5 06:36 | PROVIDERS: ATTEND Internal Medicine | DX: Z20.822 Contact with and (suspected) exposure to COVID-19 (principal) ==

== ENCOUNTER → 2020-06-05 | Outpatient (REF) | payer MEDICARE, MEDICAID | LOC: SKLAB5 07:11 | PROVIDERS: ATTEND Internal Medicine | DX: Z53.9 Procedure and treatment not carried out, unspecified reason (principal) ==

== ENCOUNTER → 2020-07-12 | Outpatient (REF) | payer MEDICARE, MEDICAID | LOC: SKLAB5 07:13 | PROVIDERS: ATTEND Internal Medicine | DX: Z53.8 Procedure and treatment not carried out for other reasons (principal) ==

== ENCOUNTER → 2020-07-16 | Outpatient (REF) | payer MEDICARE, MEDICAID ==
[2020-07-16 09:19] LABS: HEMOGLOBIN A1c 5.7 %
== END ==
LOC: SKLAB5 06:46
DX: E11.9 Type 2 diabetes mellitus without complications (principal)

== ENCOUNTER → 2020-08-15 | Outpatient (REF) | payer MEDICARE, MEDICAID | LOC: SKLAB5 06:55 | DX: G40.909 Epilepsy, unspecified, not intractable, without status epilepticus (principal) ==

== ENCOUNTER → 2020-10-10 | Outpatient (REF) | payer MEDICARE, MEDICAID ==
[2020-10-10 09:38] LABS: BASO # 0.1 10^3/uL (0.0-0.2); BASO % 0.9 % (0.0-1.0); EOS # 0.2 10^3/uL (0.0-0.5); EOS % 2.8 % (0.0-3.0); HEMATOCRIT 45.3 % (42.0-52.0); HEMOGLOBIN 15.1 g/dl (13.5-17.5); LYMPH # 1.9 10^3/uL (1.5-5.0); LYMPH % 27.5 % (24.0-44.0); MEAN CORPUSCULAR HEMOGLOBIN 29.7 pg (27.0-33.0); MEAN CORPUSCULAR HGB CONC 33.3 g/dl (32.0-36.5); MEAN CORPUSCULAR VOLUME 89.2 fl (80.0-96.0); MONO # 0.4 10^3/uL (0.0-0.8); MONO % 6.1 % (2.0-8.0); NEUTROPHILS # 4.2 10^3/uL (1.5-8.5); NEUTROPHILS % 62.3 % (36.0-66.0); PLATELET COUNT, AUTOMATED 263 10^3/uL (150-450); RED BLOOD COUNT 5.08 10^6/uL (4.30-6.10); WHITE BLOOD COUNT 6.8 10^3/uL (4.0-10.0)
[2020-10-10 10:11] LABS: BLOOD UREA NITROGEN 14 MG/DL (7-18); CALCIUM LEVEL 9.1 MG/DL (8.8-10.2); CARBON DIOXIDE LEVEL 30 MEQ/L (21-32); CHLORIDE LEVEL 102 MEQ/L (98-107); CREATININE FOR GFR 0.75 MG/DL (0.70-1.30); GLOMERULAR FILTRATION RATE > 60.0 (>42); GLUCOSE, FASTING 111 MG/DL (70-100); POTASSIUM SERUM 3.8 MEQ/L (3.5-5.1); SODIUM LEVEL 138 MEQ/L (136-145)
[2020-10-10 10:12] LABS: ALBUMIN 3.5 GM/DL (3.2-5.2); ALT/SGPT 28 U/L (12-78); BILIRUBIN,TOTAL 1.1 MG/DL (0.2-1.0); CHOLESTEROL LEVEL 151 MG/DL (<200); CHOLESTEROL RISK RATIO 3.973 (<5); HDL CHOLESTEROL 38 MG/DL (>40); LDL CHOLESTEROL 94 MG/DL (<100); NON-HDL-C 113 MG/DL; TOTAL PROTEIN 6.8 GM/DL (6.4-8.2); TRIGLYCERIDES LEVEL 94 MG/DL (<150)
== END ==
LOC: SKLAB5 08:56
DX: I67.9 Cerebrovascular disease, unspecified (principal); I10 Essential (primary) hypertension; J44.9 Chronic obstructive pulmonary disease, unspecified

== ENCOUNTER → 2020-12-12 | Outpatient (REF) | payer MEDICARE, MEDICAID | LOC: SKLAB5 08:10 | PROVIDERS: ATTEND Internal Medicine | DX: G40.909 Epilepsy, unspecified, not intractable, without status epilepticus (principal) ==

== ENCOUNTER → 2021-01-28 | Outpatient (REF) | payer MEDICARE, MEDICAID | LOC: SKLAB5 11:03 | PROVIDERS: ATTEND Internal Medicine | DX: Z20.822 Contact with and (suspected) exposure to COVID-19 (principal) ==

== ENCOUNTER → 2021-01-30 | Outpatient (REF) | payer MEDICARE, MEDICAID | LOC: SKLAB5 09:50 | PROVIDERS: ATTEND Internal Medicine | DX: Z20.822 Contact with and (suspected) exposure to COVID-19 (principal); Z53.8 Procedure and treatment not carried out for other reasons ==

== ENCOUNTER → 2021-01-31 | Outpatient (REF) | payer MEDICARE, MEDICAID ==
[2021-01-31 19:10] LABS: HEMATOCRIT 45.1 % (42.0-52.0); HEMOGLOBIN 15.1 g/dl (13.5-17.5); MEAN CORPUSCULAR HGB CONC 33.5 g/dl (32.0-36.5); MEAN CORPUSCULAR VOLUME 89.7 fl (80.0-96.0); PLATELET COUNT, AUTOMATED 283 10^3/uL (150-450); RED BLOOD COUNT 5.03 10^6/uL (4.30-6.10); WHITE BLOOD COUNT 6.2 10^3/uL (4.0-10.0)
[2021-01-31 19:31] LABS: ALBUMIN 3.4 GM/DL (3.2-5.2); ALT/SGPT 30 U/L (12-78); BILIRUBIN,TOTAL 0.6 MG/DL (0.2-1.0); BLOOD UREA NITROGEN 10 MG/DL (7-18); C REACTIVE PROTEIN QUANTITATIV 1.58 MG/DL (0.00-0.30); CALCIUM LEVEL 8.4 MG/DL (8.8-10.2); CARBON DIOXIDE LEVEL 33 MEQ/L (21-32); CHLORIDE LEVEL 102 MEQ/L (98-107); GLOMERULAR FILTRATION RATE > 60.0 (>42); GLUCOSE, FASTING 91 MG/DL (70-100); POTASSIUM SERUM 4.1 MEQ/L (3.5-5.1); SODIUM LEVEL 138 MEQ/L (136-145); TOTAL PROTEIN 7.3 GM/DL (6.4-8.2)
[2021-01-31 19:41] LABS: PROLACTIN 6.2 NG/ML (2.1-17.7)
== END ==
LOC: SKLAB2 14:22
DX: U07.1 COVID-19 (principal); Z79.899 Other long term (current) drug therapy

== ENCOUNTER → 2021-01-31 | Outpatient (REF) | payer MEDICARE, MEDICAID | LOC: SKLAB2 14:20 | PROVIDERS: ATTEND Internal Medicine | DX: U07.1 COVID-19 (principal) ==

== ENCOUNTER → 2021-02-01 | Outpatient (REF) ==
--- NOTE | 2021-02-01 09:03 | REP ---
INDICATION: HYPOXIA, COVID +. COMPARISON: Multiple the latest 07/28/2017 TECHNIQUE: Portable FINDINGS: The technique utilized in obtaining the radiograph has magnified the cardiac silhouette and attenuated the interstitial markings. Cardiomediastinal silhouette is within normal limits. The heart is not enlarged. Note is again made of previous median sternotomy. The lung mayorga are clear and the pleural angles are sharp. The osseous structures are stable and intact. IMPRESSION: There is no evidence of acute cardiopulmonary disease. <Electronically signed by Ovidio Corbin > 02/01/21 [id number]
== END ==
LOC: SKLAB2 07:44
PROVIDERS: ATTEND Internal Medicine
DX: U07.1 COVID-19 (principal); R09.02 Hypoxemia

== ENCOUNTER → 2021-02-05 | Outpatient (REF) | payer MEDICARE, MEDICAID ==
[2021-02-05 11:00] LABS: HEMATOCRIT 41.9 % (42.0-52.0); HEMOGLOBIN 14.1 g/dl (13.5-17.5); MEAN CORPUSCULAR HEMOGLOBIN 29.3 pg (27.0-33.0); MEAN CORPUSCULAR HGB CONC 33.7 g/dl (32.0-36.5); MEAN CORPUSCULAR VOLUME 87.1 fl (80.0-96.0); PLATELET COUNT, AUTOMATED 202 10^3/uL (150-450); RED BLOOD COUNT 4.81 10^6/uL (4.30-6.10); WHITE BLOOD COUNT 7.6 10^3/uL (4.0-10.0)
[2021-02-05 11:32] LABS: ALBUMIN 2.7 GM/DL (3.2-5.2); BILIRUBIN,TOTAL 0.7 MG/DL (0.2-1.0); CALCIUM LEVEL 8.4 MG/DL (8.8-10.2); CREATININE FOR GFR 1.29 MG/DL (0.70-1.30); GLOMERULAR FILTRATION RATE 58.1 (>42); POTASSIUM SERUM 3.5 MEQ/L (3.5-5.1); TOTAL PROTEIN 6.3 GM/DL (6.4-8.2)
--- NOTE | 2021-02-05 16:19 | REP ---
INDICATION: COVID 19. COMPARISON: Multiple the latest 02/01/2021 TECHNIQUE: Portable FINDINGS: The technique utilized in obtaining the radiograph has magnified the cardiac silhouette and accentuated the interstitial markings. There is a new patchy opacity in the right middle and lower lobe. The lung mayorga are otherwise unchanged. Cardiomediastinal silhouette is stable. The osseous structures stable. IMPRESSION: New right lung opacities as described above consistent with pneumonia. <Electronically signed by Ovidio Corbin > 02/05/21 [id number]
== END ==
LOC: SKLAB2 07:00
PROVIDERS: ATTEND Internal Medicine
DX: U07.1 COVID-19 (principal); R91.8 Other nonspecific abnormal finding of lung field

== ENCOUNTER → 2021-02-06 | Outpatient (REF) | payer MEDICARE, MEDICAID ==
--- NOTE | 2021-02-06 14:32 | REP ---
INDICATION: COVID. COMPARISON: Multiple the latest yesterday at 1:48 p.m. TECHNIQUE: Portable FINDINGS: The technique utilized in obtaining the radiograph has magnified the cardiac silhouette and accentuated the interstitial markings. The right lower lobe patchy opacities appear more dense. Newly developing right upper lobe opacities are suggested. The left lung is clear and stable. The cardiomediastinal silhouette is unchanged. Note is again made of previous median sternotomy and cardiomegaly accentuated by technique. There is no change in the osseous structures. IMPRESSION: Abnormal lung field opacities consistent with pneumonia as described above. <Electronically signed by Ovidio Corbin > 02/06/21 [id number]
== END ==
LOC: SKLAB2 13:45
PROVIDERS: ATTEND Internal Medicine
DX: U07.1 COVID-19 (principal); R91.8 Other nonspecific abnormal finding of lung field

== ENCOUNTER → 2021-02-07 | Outpatient (REF) | payer MEDICARE, MEDICAID ==
[2021-02-07 06:59] LABS: MEAN CORPUSCULAR HEMOGLOBIN 28.9 pg (27.0-33.0); MEAN CORPUSCULAR HGB CONC 33.3 g/dl (32.0-36.5); MEAN CORPUSCULAR VOLUME 86.8 fl (80.0-96.0); PLATELET COUNT, AUTOMATED 244 10^3/uL (150-450); RED BLOOD COUNT 4.84 10^6/uL (4.30-6.10); WHITE BLOOD COUNT 8.7 10^3/uL (4.0-10.0)
[2021-02-07 07:35] LABS: ALBUMIN 2.5 GM/DL (3.2-5.2); BILIRUBIN,TOTAL 0.8 MG/DL (0.2-1.0); CALCIUM LEVEL 8.7 MG/DL (8.8-10.2); CREATININE FOR GFR 1.59 MG/DL (0.70-1.30); GLOMERULAR FILTRATION RATE 45.7 (>42); POTASSIUM SERUM 3.8 MEQ/L (3.5-5.1); TOTAL PROTEIN 6.2 GM/DL (6.4-8.2)
--- NOTE | 2021-02-07 15:40 | REP ---
INDICATION: COVID 19. COMPARISON: Yesterday at 1:52 p.m. TECHNIQUE: Portable FINDINGS: The technique utilized in obtaining the radiograph has magnified the cardiac silhouette and accentuated the interstitial markings. The cardiomediastinal silhouette lung mayorga are unchanged. Patchy opacities in the right lung are stable. The left lung is clear and unchanged. There is no change in the osseous structures. IMPRESSION: No significant change <Electronically signed by Ovidio Corbin > 02/07/21 [id number]
== END ==
LOC: SKLAB2 08:43
PROVIDERS: ATTEND Internal Medicine
DX: U07.1 COVID-19 (principal); Z79.899 Other long term (current) drug therapy

== ENCOUNTER → 2021-02-10 | Outpatient (REF) | payer MEDICARE, MEDICAID ==
[2021-02-10 09:30] LABS: HEMATOCRIT 41.8 % (42.0-52.0); HEMOGLOBIN 13.8 g/dl (13.5-17.5); MEAN CORPUSCULAR HEMOGLOBIN 28.9 pg (27.0-33.0); MEAN CORPUSCULAR VOLUME 87.6 fl (80.0-96.0); PLATELET COUNT, AUTOMATED 368 10^3/uL (150-450); RED BLOOD COUNT 4.77 10^6/uL (4.30-6.10)
[2021-02-10 10:29] LABS: ALBUMIN 2.5 GM/DL (3.2-5.2); ALT/SGPT 84 U/L (12-78); BILIRUBIN,TOTAL 1.1 MG/DL (0.2-1.0); BLOOD UREA NITROGEN 24 MG/DL (7-18); CALCIUM LEVEL 8.4 MG/DL (8.8-10.2); CARBON DIOXIDE LEVEL 32 MEQ/L (21-32); CHLORIDE LEVEL 96 MEQ/L (98-107); CREATININE FOR GFR 1.03 MG/DL (0.70-1.30); GLOMERULAR FILTRATION RATE > 60.0 (>42); GLUCOSE, FASTING 95 MG/DL (70-100); POTASSIUM SERUM 4.1 MEQ/L (3.5-5.1); SODIUM LEVEL 134 MEQ/L (136-145); TOTAL PROTEIN 6.2 GM/DL (6.4-8.2)
== END ==
LOC: SKLAB2 09:09
PROVIDERS: ATTEND Internal Medicine
DX: U07.1 COVID-19 (principal); Z79.899 Other long term (current) drug therapy

== ENCOUNTER → 2021-02-12 | Outpatient (REF) | payer MEDICARE, MEDICAID ==
[2021-02-12 10:02] LABS: HEMOGLOBIN 14.1 g/dl (13.5-17.5); MEAN CORPUSCULAR HGB CONC 32.8 g/dl (32.0-36.5); MEAN CORPUSCULAR VOLUME 88.5 fl (80.0-96.0); PLATELET COUNT, AUTOMATED 530 10^3/uL (150-450); RED BLOOD COUNT 4.86 10^6/uL (4.30-6.10); WHITE BLOOD COUNT 21.4 10^3/uL (4.0-10.0)
[2021-02-12 10:59] LABS: ALBUMIN 2.5 GM/DL (3.2-5.2); ALT/SGPT 105 U/L (12-78); BILIRUBIN,TOTAL 0.8 MG/DL (0.2-1.0); BLOOD UREA NITROGEN 36 MG/DL (7-18); CALCIUM LEVEL 8.9 MG/DL (8.8-10.2); CARBON DIOXIDE LEVEL 33 MEQ/L (21-32); CHLORIDE LEVEL 99 MEQ/L (98-107); CREATININE FOR GFR 0.96 MG/DL (0.70-1.30); GLOMERULAR FILTRATION RATE > 60.0 (>42); GLUCOSE, FASTING 91 MG/DL (70-100); POTASSIUM SERUM 4.3 MEQ/L (3.5-5.1); SODIUM LEVEL 139 MEQ/L (136-145); TOTAL PROTEIN 6.6 GM/DL (6.4-8.2)
--- NOTE | 2021-02-12 11:21 | REP ---
INDICATION: COVID /PNEUMONIA. COMPARISON: Multiple the latest 02/07/2021 also portable TECHNIQUE: Portable FINDINGS: The technique utilized in obtaining the radiograph has magnified the cardiac silhouette and accentuated the interstitial markings. The patchy opacities seen previously in the right lung have improved. No new abnormal opacities have developed. The pleural angles are again seen to be sharp. The cardiomediastinal silhouette is stable. The osseous structures stable. IMPRESSION: Improved lung mayorga <Electronically signed by Ovidio Corbin > 02/12/21 [id number]
== END ==
LOC: SKLAB2 07:24
PROVIDERS: ATTEND Internal Medicine
DX: U07.1 COVID-19 (principal); Z79.899 Other long term (current) drug therapy

== ENCOUNTER → 2021-02-13 | Outpatient (REF) | payer MEDICARE, MEDICAID ==
[2021-02-13 13:25] LABS: BASO # 0.1 10^3/uL (0.0-0.2); BASO % 0.5 % (0.0-1.0); EOS % 0.2 % (0.0-3.0); HEMATOCRIT 44.1 % (42.0-52.0); HEMOGLOBIN 14.4 g/dl (13.5-17.5); LYMPH # 1.1 10^3/uL (1.5-5.0); LYMPH % 7.5 % (24.0-44.0); MEAN CORPUSCULAR HEMOGLOBIN 28.9 pg (27.0-33.0); MEAN CORPUSCULAR HGB CONC 32.7 g/dl (32.0-36.5); MEAN CORPUSCULAR VOLUME 88.4 fl (80.0-96.0); MONO # 1.6 10^3/uL (0.0-0.8); MONO % 10.5 % (2.0-8.0); NEUTROPHILS # 11.7 10^3/uL (1.5-8.5); NEUTROPHILS % 76.9 % (36.0-66.0); RED BLOOD COUNT 4.99 10^6/uL (4.30-6.10); WHITE BLOOD COUNT 15.2 10^3/uL (4.0-10.0)
[2021-02-13 14:32] LABS: PLATELET COUNT, AUTOMATED 488 10^3/uL (150-450)
--- NOTE | 2021-02-13 14:48 | REP ---
INDICATION: N/V CONSTIPATION. COMPARISON: None. FINDINGS: Exam is extremely limited by motion artifact and positioning. There is a large amount of content in the rectosigmoid vault. There is no gross free air or evidence of intestinal obstruction. The organ silhouettes are obscured. IMPRESSION: As above. Consider CT <Electronically signed by Ovidio Corbin > 02/13/21 [id number]
== END ==
LOC: SKLAB2 07:00
PROVIDERS: ATTEND Internal Medicine
DX: D72.829 Elevated white blood cell count, unspecified (principal)

== ENCOUNTER → 2021-02-14 | Outpatient (REF) | payer MEDICARE, MEDICAID ==
[2021-02-14 11:43] LABS: HEMOGLOBIN 13.8 g/dl (13.5-17.5); MEAN CORPUSCULAR HEMOGLOBIN 29.4 pg (27.0-33.0); MEAN CORPUSCULAR HGB CONC 32.9 g/dl (32.0-36.5); MEAN CORPUSCULAR VOLUME 89.6 fl (80.0-96.0); PLATELET COUNT, AUTOMATED 514 10^3/uL (150-450); RED BLOOD COUNT 4.69 10^6/uL (4.30-6.10); WHITE BLOOD COUNT 13.7 10^3/uL (4.0-10.0)
[2021-02-14 12:28] LABS: ALBUMIN 2.1 GM/DL (3.2-5.2); ALT/SGPT 150 U/L (12-78); BILIRUBIN,TOTAL 0.8 MG/DL (0.2-1.0); BLOOD UREA NITROGEN 23 MG/DL (7-18); CALCIUM LEVEL 8.7 MG/DL (8.8-10.2); CARBON DIOXIDE LEVEL 33 MEQ/L (21-32); CHLORIDE LEVEL 98 MEQ/L (98-107); GLOMERULAR FILTRATION RATE > 60.0 (>42); GLUCOSE, FASTING 140 MG/DL (70-100); POTASSIUM SERUM 2.9 MEQ/L (3.5-5.1); SODIUM LEVEL 138 MEQ/L (136-145); TOTAL PROTEIN 6.5 GM/DL (6.4-8.2)
[2021-02-15 01:40] LABS: APPEARANCE, URINE CLEAR (CLEAR); BACTERIA, URINE AUTO NEGATIVE (NEGATIVE); BILIRUBIN, URINE AUTO NEGATIVE (NEGATIVE); BLOOD, URINE BLOOD 3+ (NEGATIVE); COLOR, URINE AMBER (YELLOW); GLUCOSE, URINE (UA) AUTO NEGATIVE (NEGATIVE); KETONE, URINE AUTO NEGATIVE (NEGATIVE); LEUKOCYTE ESTERASE, URINE AUTO NEGATIVE (NEGATIVE); MUCUS, URINE SMALL (NEGATIVE); NITRITE, URINE AUTO NEGATIVE (NEGATIVE); PROTEIN, URINE AUTO NEGATIVE (NEGATIVE); RBC, URINE AUTO TNTC /HPF (0-3); SQUAMOUS EPITHELIAL CELL UR AU 0 /HPF (0-6); WBC, URINE AUTO 0 /HPF (0-3)
[2021-02-15 01:46] LABS: SPECIFIC GRAVITY URINE AUTO >1.060 (1.002-1.035)
== END ==
LOC: SKLAB5 08:30
PROVIDERS: ATTEND Internal Medicine
DX: N20.0 Calculus of kidney (principal)
CPT/HCPCS: 36415; 74177; 80053; 81001; 85027; 87086; Q9963; Q9967

== ENCOUNTER → 2021-02-14 | Outpatient (CLI) | payer MEDICARE, MEDICAID ==
[~2021-02-14] MED LIST changes: +GASTROGRAFIN SOLUTION 30ML PO SCH; +ISOVUE-370 76% 100ML VIAL As Ordered ONE
--- NOTE | 2021-02-14 18:32 | REP ---
INDICATION: ABD PAIN, NAUSEA/VOMITING. COMPARISON: Abdomen series 02/13/2021, CT 06/21/2016 TECHNIQUE: Oral Gastrografin 10 mL in 290 mL flavored water for 2 doses per our bowel contrast protocol. Subsequent bolus 100 mL Isovue 370 scanning through the abdomen and pelvis with coronal and sagittal reconstructions. FINDINGS: CT abdomen: Patchy infiltrates in the right base with the dependent atelectatic changes bilaterally. Some curvilinear fibrosis in the medial basal segment the left lower lobe. No effusion. No dense consolidation with air bronchograms. Heart not enlarged there is no pericardial thickening or effusion. I see no hiatal hernia. There is thickening of the distal esophagus which could be related to reflux esophagitis or Lewis's. This is similar to the previous study. Liver, spleen, gallbladder, pancreas, adrenal glands and stomach are unremarkable. Kidneys show some small cysts on the right and left side less than a cm. There is mild hydronephrosis and extrarenal pelvis on the left with left hydroureter. At the bladder wall or just inside the bladder is a 5 mm stone on the left side. Right kidney showed no hydronephrosis, hydroureter renal or ureteral stone. Small bowel loops are contrast or fluid-filled. Contrast does not reach the terminal ileum or cecum. There is atherosclerotic calcifications throughout the aorta without aneurysm or dissection. There is no stenosis of the major vessel takeoffs from the aorta. There is some atherosclerotic calcifications in the iliac vessels as well. No ventral hernia. The abdomen proper shows a few scattered diverticula without signs of diverticulitis. There is no periaortic pathologic sized adenopathy. Mesentery and remainder of retroperitoneal region show no adenopathy. Appendix is seen and normal. There is no ascites or free air in the abdomen or pelvis. Bone windows show degenerative changes scattered in the spine without compression deformity or destructive lesion. There are sternotomy wires, a healed sternum and the visualized lower ribs were all intact. CT pelvis: Sacrum, pelvis, SI joints and hips show some degenerative changes without destructive lesion or fracture. The rectal vault is distended to 8.5 cm in transverse diameter suggesting some degree of impaction but no obstruction evident. No inguinal hernia or adenopathy evident and no pelvic adenopathy. Bladder adequately filled and has that 5 mm stone at the bladder wall on the left. No colitis or diverticulitis in the deep pelvis. IMPRESSION: 1. Mild hydronephrosis and hydroureter on the left with a 5 mm stone in the bladder wall or just inside the bladder. No other renal or ureteral stones on either side. 2. Constipation with the rectal vault distended 8.5 cm transverse this may reflect some degree of impaction but there is no obstruction in colon or small bowel loops. No ascites, free air, adenopathy colitis or diverticulitis. Appendix seen and normal 3. Solid organs in the upper abdomen are otherwise unremarkable in the gallbladder intact. The distal esophagus shows wall thickening that may reflect gastroesophageal reflux with esophagitis versus Lewis's. <Electronically signed by Lucien Kay > 02/14/21 [id number]
== END ==
LOC: M RAD 13:20
PROVIDERS: ATTEND Nurse Practitioner Adult Health
DX: N13.30 Unspecified hydronephrosis (principal); N20.0 Calculus of kidney; R10.9 Unspecified abdominal pain; R11.2 Nausea with vomiting, unspecified
CPT/HCPCS: 74177; Q9963; Q9967

== ENCOUNTER → 2021-02-15 | Outpatient (REF) | payer MEDICARE, MEDICAID ==
[~2021-02-15] MED LIST changes: -GASTROGRAFIN SOLUTION 30ML PO SCH; -ISOVUE-370 76% 100ML VIAL As Ordered ONE
[2021-02-15 08:23] LABS: BLOOD UREA NITROGEN 19 MG/DL (7-18); CALCIUM LEVEL 8.1 MG/DL (8.8-10.2); CARBON DIOXIDE LEVEL 31 MEQ/L (21-32); CHLORIDE LEVEL 100 MEQ/L (98-107); CREATININE FOR GFR 0.73 MG/DL (0.70-1.30); GLOMERULAR FILTRATION RATE > 60.0 (>42); GLUCOSE, FASTING 100 MG/DL (70-100); POTASSIUM SERUM 4.1 MEQ/L (3.5-5.1); SODIUM LEVEL 138 MEQ/L (136-145)
== END ==
LOC: SKLAB2 03:37
PROVIDERS: ATTEND Internal Medicine
DX: E87.6 Hypokalemia (principal)

== ENCOUNTER → 2021-02-15 | Outpatient (REF) ==
--- NOTE | 2021-02-15 16:22 | REP ---
INDICATION: COVID. COMPARISON: 02/12/2021, 02/07/2021 TECHNIQUE: Portable AP seated. FINDINGS: Lung mayorga are well inflated. Patchy right base opacities are again seen and probably not changed. The left lung was clear the CP angles are sharply defined. Heart is not enlarged. There are sternotomy wires evident. The aorta is without gross aneurysm. Airway with some minimal subglottic narrowing on this frontal view. No free air under the diaphragm. IMPRESSION: 1. No significant interval change with the patchy infiltrates in the right lower lung zone and periphery of the right mid lung zone. Left lung remains clear. Heart mediastinal contours unchanged. No edema or definite effusion. <Electronically signed by Lucien Kay > 02/15/21 [id number]
== END ==
LOC: SKLAB2 13:15
PROVIDERS: ATTEND Internal Medicine
DX: U07.1 COVID-19 (principal)

== ENCOUNTER → 2021-02-17 | Outpatient (REF) | payer MEDICARE, MEDICAID ==
[2021-02-17 11:17] LABS: HEMATOCRIT 41.5 % (42.0-52.0); HEMOGLOBIN 13.4 g/dl (13.5-17.5); MEAN CORPUSCULAR HEMOGLOBIN 28.9 pg (27.0-33.0); MEAN CORPUSCULAR HGB CONC 32.3 g/dl (32.0-36.5); MEAN CORPUSCULAR VOLUME 89.6 fl (80.0-96.0); PLATELET COUNT, AUTOMATED 492 10^3/uL (150-450); RED BLOOD COUNT 4.63 10^6/uL (4.30-6.10)
[2021-02-17 12:00] LABS: BLOOD UREA NITROGEN 19 MG/DL (7-18); CALCIUM LEVEL 8.8 MG/DL (8.8-10.2); CARBON DIOXIDE LEVEL 35 MEQ/L (21-32); CHLORIDE LEVEL 94 MEQ/L (98-107); CREATININE FOR GFR 0.99 MG/DL (0.70-1.30); GLOMERULAR FILTRATION RATE > 60.0 (>42); GLUCOSE, FASTING 121 MG/DL (70-100); POTASSIUM SERUM 3.9 MEQ/L (3.5-5.1); SODIUM LEVEL 135 MEQ/L (136-145)
== END ==
LOC: SKLAB2 11:13
PROVIDERS: ATTEND Internal Medicine
DX: U07.1 COVID-19 (principal); Z79.899 Other long term (current) drug therapy

== ENCOUNTER → 2021-03-13 | Outpatient (REF) | payer MEDICARE, MEDICAID ==
[2021-03-13 11:34] LABS: CHOLESTEROL RISK RATIO 5.357 (<5)
== END ==
LOC: SKLAB5 07:00
PROVIDERS: ATTEND Internal Medicine
DX: I50.9 Heart failure, unspecified (principal); E78.5 Hyperlipidemia, unspecified

== ENCOUNTER → 2021-04-23 | Outpatient (REF) | payer MEDICARE, MEDICAID ==
[2021-04-23 14:24] LABS: HEMATOCRIT 39.8 % (42.0-52.0); HEMOGLOBIN 13.1 g/dl (13.5-17.5); MEAN CORPUSCULAR HEMOGLOBIN 29.1 pg (27.0-33.0); MEAN CORPUSCULAR HGB CONC 32.9 g/dl (32.0-36.5); MEAN CORPUSCULAR VOLUME 88.4 fl (80.0-96.0); PLATELET COUNT, AUTOMATED 378 10^3/uL (150-450); WHITE BLOOD COUNT 7.4 10^3/uL (4.0-10.0)
[2021-04-23 14:47] LABS: BLOOD UREA NITROGEN 12 MG/DL (7-18); CALCIUM LEVEL 8.7 MG/DL (8.8-10.2); CARBON DIOXIDE LEVEL 29 MEQ/L (21-32); CHLORIDE LEVEL 103 MEQ/L (98-107); CREATININE FOR GFR 0.87 MG/DL (0.70-1.30); GLOMERULAR FILTRATION RATE > 60.0 (>42); GLUCOSE, FASTING 186 MG/DL (70-100); SODIUM LEVEL 138 MEQ/L (136-145)
== END ==
LOC: SKLAB5 13:30
PROVIDERS: ATTEND Internal Medicine
DX: I50.9 Heart failure, unspecified (principal); E78.5 Hyperlipidemia, unspecified

== ENCOUNTER → 2021-04-24 | Outpatient (REF) | payer MEDICARE, MEDICAID ==
[2021-04-24 08:54] LABS: BASO # 0.1 10^3/uL (0.0-0.2); BASO % 1.2 % (0.0-1.0); EOS # 0.3 10^3/uL (0.0-0.5); EOS % 4.9 % (0.0-3.0); HEMATOCRIT 40.4 % (42.0-52.0); LYMPH # 2.3 10^3/uL (1.5-5.0); LYMPH % 33.8 % (24.0-44.0); MEAN CORPUSCULAR HEMOGLOBIN 28.6 pg (27.0-33.0); MEAN CORPUSCULAR HGB CONC 32.2 g/dl (32.0-36.5); MONO # 0.5 10^3/uL (0.0-0.8); MONO % 6.7 % (2.0-8.0); NEUTROPHILS # 3.7 10^3/uL (1.5-8.5); NEUTROPHILS % 52.8 % (36.0-66.0); PLATELET COUNT, AUTOMATED 381 10^3/uL (150-450); RED BLOOD COUNT 4.54 10^6/uL (4.30-6.10); WHITE BLOOD COUNT 6.9 10^3/uL (4.0-10.0)
[2021-04-24 09:19] LABS: ALBUMIN 3.2 GM/DL (3.2-5.2); ALT/SGPT 20 U/L (12-78); BILIRUBIN,TOTAL 0.8 MG/DL (0.2-1.0); BLOOD UREA NITROGEN 13 MG/DL (7-18); CALCIUM LEVEL 9.1 MG/DL (8.8-10.2); CARBON DIOXIDE LEVEL 30 MEQ/L (21-32); CHLORIDE LEVEL 103 MEQ/L (98-107); CHOLESTEROL LEVEL 157 MG/DL (<200); CHOLESTEROL RISK RATIO 3.925 (<5); CREATININE FOR GFR 0.73 MG/DL (0.70-1.30); GLOMERULAR FILTRATION RATE > 60.0 (>42); GLUCOSE, FASTING 129 MG/DL (70-100); HDL CHOLESTEROL 40 MG/DL (>40); LDL CHOLESTEROL 98 MG/DL (<100); NON-HDL-C 117 MG/DL; POTASSIUM SERUM 3.9 MEQ/L (3.5-5.1); SODIUM LEVEL 139 MEQ/L (136-145); TOTAL PROTEIN 6.6 GM/DL (6.4-8.2); TRIGLYCERIDES LEVEL 97 MG/DL (<150)
== END ==
LOC: SKLAB5 07:00
PROVIDERS: ATTEND Internal Medicine
DX: I50.9 Heart failure, unspecified (principal); E78.5 Hyperlipidemia, unspecified

== ENCOUNTER → 2021-08-28 | Outpatient (REF) | payer MEDICARE, MEDICAID | LOC: SKLAB5 12:30 | PROVIDERS: ATTEND Internal Medicine | DX: G40.909 Epilepsy, unspecified, not intractable, without status epilepticus (principal) ==

== ENCOUNTER → 2021-12-30 | Outpatient (REF) | payer MEDICARE, MEDICAID ==
[2021-12-30 11:28] LABS: BASO # 0.1 10^3/uL (0.0-0.2); BASO % 0.8 % (0.0-1.0); EOS # 0.3 10^3/uL (0.0-0.5); EOS % 4.1 % (0.0-3.0); HEMATOCRIT 44.2 % (42.0-52.0); HEMOGLOBIN 14.3 g/dl (13.5-17.5); LYMPH # 1.9 10^3/uL (1.5-5.0); LYMPH % 30.3 % (24.0-44.0); MEAN CORPUSCULAR HEMOGLOBIN 28.4 pg (27.0-33.0); MEAN CORPUSCULAR HGB CONC 32.4 g/dl (32.0-36.5); MEAN CORPUSCULAR VOLUME 87.7 fl (80.0-96.0); MONO # 0.5 10^3/uL (0.0-0.8); MONO % 7.7 % (2.0-8.0); NEUTROPHILS # 3.5 10^3/uL (1.5-8.5); NEUTROPHILS % 56.6 % (36.0-66.0); PLATELET COUNT, AUTOMATED 246 10^3/uL (150-450); RED BLOOD COUNT 5.04 10^6/uL (4.30-6.10); WHITE BLOOD COUNT 6.1 10^3/uL (4.0-10.0)
[2021-12-30 12:06] LABS: ALBUMIN 3.3 GM/DL (3.2-5.2); ALKALINE PHOSPHATASE 118 U/L (45-117); ALT/SGPT 22 U/L (12-78); AST/SGOT 12 U/L (7-37); BILIRUBIN,TOTAL 0.7 MG/DL (0.2-1.0); BLOOD UREA NITROGEN 13 MG/DL (7-18); CALCIUM LEVEL 8.7 MG/DL (8.8-10.2); CARBON DIOXIDE LEVEL 29 MEQ/L (21-32); CHLORIDE LEVEL 104 MEQ/L (98-107); CHOLESTEROL LEVEL 140 MG/DL (<200); CREATININE FOR GFR 0.73 MG/DL (0.70-1.30); GLOMERULAR FILTRATION RATE > 60.0 (>42); GLUCOSE, FASTING 133 MG/DL (70-100); HDL CHOLESTEROL 40 MG/DL (>40); LDL CHOLESTEROL 81 MG/DL (<100); NON-HDL-C 100 MG/DL; POTASSIUM SERUM 3.9 MEQ/L (3.5-5.1); SODIUM LEVEL 138 MEQ/L (136-145); TOTAL PROTEIN 6.4 GM/DL (6.4-8.2); TRIGLYCERIDES LEVEL 93 MG/DL (<150)
== END ==
LOC: SKLAB5 09:58
PROVIDERS: ATTEND Internal Medicine
DX: I50.9 Heart failure, unspecified (principal); R56.9 Unspecified convulsions; Z51.81 Encounter for therapeutic drug level monitoring; Z79.899 Other long term (current) drug therapy

== ENCOUNTER → 2022-06-26 | Outpatient (REF) | payer MEDICARE, MEDICAID ==
[2022-06-26 08:44] LABS: BASO # 0.1 10^3/uL (0.0-0.2); BASO % 0.7 % (0.0-1.0); EOS # 0.2 10^3/uL (0.0-0.5); EOS % 2.8 % (0.0-3.0); HEMATOCRIT 45.5 % (42.0-52.0); HEMOGLOBIN 14.9 g/dl (13.5-17.5); LYMPH % 27.8 % (24.0-44.0); MEAN CORPUSCULAR HEMOGLOBIN 29.1 pg (27.0-33.0); MEAN CORPUSCULAR HGB CONC 32.7 g/dl (32.0-36.5); MEAN CORPUSCULAR VOLUME 88.9 fl (80.0-96.0); MONO # 0.6 10^3/uL (0.0-0.8); MONO % 8.7 % (2.0-8.0); NEUTROPHILS # 4.2 10^3/uL (1.5-8.5); NEUTROPHILS % 59.1 % (36.0-66.0); PLATELET COUNT, AUTOMATED 292 10^3/uL (150-450); RED BLOOD COUNT 5.12 10^6/uL (4.30-6.10)
[2022-06-26 09:14] LABS: ALBUMIN 3.6 G/DL (3.2-5.2); ALKALINE PHOSPHATASE 134 U/L (46-116); ALT/SGPT 29 U/L (7.0-40); AST/SGOT 18 U/L (<34); BILIRUBIN,TOTAL 0.7 MG/DL (0.3-1.2); BLOOD UREA NITROGEN 15 MG/DL (9-23); CALCIUM LEVEL 8.9 MG/DL (8.3-10.6); CARBON DIOXIDE LEVEL 31 MMOL/L (20-31); CHLORIDE LEVEL 104 MMOL/L (98-107); CHOLESTEROL LEVEL 143 MG/DL (<200); CREATININE FOR GFR 0.75 MG/DL (0.70-1.30); GLOMERULAR FILTRATION RATE > 60.0 (>42); GLUCOSE, FASTING 86 MG/DL (74-106); HDL CHOLESTEROL 39.7 MG/DL (>40); LDL CHOLESTEROL 88.7 MG/DL (<100); NON-HDL-C 103.3 MG/DL; POTASSIUM SERUM 4.3 MMOL/L (3.5-5.1); SODIUM LEVEL 138 MMOL/L (136-145); TOTAL PROTEIN 6.4 G/DL (5.7-8.2); TRIGLYCERIDES LEVEL 73 MG/DL (<150)
== END ==
LOC: SKLAB5 09:46
PROVIDERS: ATTEND Nurse Practitioner Adult Health
DX: I50.9 Heart failure, unspecified (principal); G40.909 Epilepsy, unspecified, not intractable, without status epilepticus

== ENCOUNTER → 2022-12-25 | Outpatient (REF) | payer MEDICARE, MEDICAID ==
[2022-12-25 08:50] LABS: BASO # 0.1 10^3/uL (0.0-0.2); BASO % 0.8 % (0.0-1.0); EOS # 0.2 10^3/uL (0.0-0.5); EOS % 3.6 % (0.0-3.0); HEMATOCRIT 42.9 % (42.0-52.0); HEMOGLOBIN 14.2 g/dl (13.5-17.5); LYMPH # 2.1 10^3/uL (1.5-5.0); LYMPH % 31.9 % (24.0-44.0); MEAN CORPUSCULAR HEMOGLOBIN 29.3 pg (27.0-33.0); MEAN CORPUSCULAR HGB CONC 33.1 g/dl (32.0-36.5); MEAN CORPUSCULAR VOLUME 88.5 fl (80.0-96.0); MONO # 0.5 10^3/uL (0.0-0.8); MONO % 8.3 % (2.0-8.0); NEUTROPHILS # 3.5 10^3/uL (1.5-8.5); NEUTROPHILS % 54.8 % (36.0-66.0); PLATELET COUNT, AUTOMATED 276 10^3/uL (150-450); RED BLOOD COUNT 4.85 10^6/uL (4.30-6.10); WHITE BLOOD COUNT 6.4 10^3/uL (4.0-10.0)
[2022-12-25 09:26] LABS: ALBUMIN 3.3 G/DL (3.2-5.2); ALKALINE PHOSPHATASE 118 U/L (46-116); ALT/SGPT 29 U/L (7.0-40); AST/SGOT 11 U/L (<34); BILIRUBIN,TOTAL 0.9 MG/DL (0.3-1.2); BLOOD UREA NITROGEN 14 MG/DL (9-23); CALCIUM LEVEL 8.7 MG/DL (8.3-10.6); CARBON DIOXIDE LEVEL 34 MMOL/L (20-31); CHLORIDE LEVEL 103 MMOL/L (98-107); CHOLESTEROL LEVEL 136 MG/DL (<200); CHOLESTEROL RISK RATIO 4.31 (<5); CREATININE FOR GFR 0.75 MG/DL (0.70-1.30); GLOMERULAR FILTRATION RATE > 60.0 (>42); GLUCOSE, FASTING 80 MG/DL (74-106); HDL CHOLESTEROL 31.5 MG/DL (>40); LDL CHOLESTEROL 87.3 MG/DL (<100); NON-HDL-C 104.5 MG/DL; POTASSIUM SERUM 4.2 MMOL/L (3.5-5.1); SODIUM LEVEL 141 MMOL/L (136-145); TOTAL PROTEIN 6.2 G/DL (5.7-8.2); TRIGLYCERIDES LEVEL 86 MG/DL (<150)
== END ==
LOC: SKLAB5 08:48
PROVIDERS: ATTEND Nurse Practitioner Adult Health
DX: I50.9 Heart failure, unspecified (principal)

== ENCOUNTER → 2023-06-29 | Outpatient (REF) | payer MEDICARE, MEDICAID | LOC: SKLAB5 11:06 | PROVIDERS: ATTEND Nurse Practitioner Adult Health | DX: G40.909 Epilepsy, unspecified, not intractable, without status epilepticus (principal); Z53.8 Procedure and treatment not carried out for other reasons ==

== ENCOUNTER → 2023-07-08 | Outpatient (REF) | payer MEDICARE, MEDICAID ==
[2023-07-08 08:18] LABS: BASO # 0.1 10^3/uL (0.0-0.2); EOS # 0.3 10^3/uL (0.0-0.5); EOS % 4.1 % (0.0-3.0); HEMATOCRIT 43.2 % (42.0-52.0); HEMOGLOBIN 13.9 g/dl (13.5-17.5); LYMPH # 2.3 10^3/uL (1.5-5.0); LYMPH % 31.6 % (24.0-44.0); MEAN CORPUSCULAR HEMOGLOBIN 28.5 pg (27.0-33.0); MEAN CORPUSCULAR HGB CONC 32.2 g/dl (32.0-36.5); MEAN CORPUSCULAR VOLUME 88.7 fl (80.0-96.0); MONO # 0.6 10^3/uL (0.0-0.8); NEUTROPHILS % 54.9 % (36.0-66.0); PLATELET COUNT, AUTOMATED 257 10^3/uL (150-450); RED BLOOD COUNT 4.87 10^6/uL (4.30-6.10); WHITE BLOOD COUNT 7.3 10^3/uL (4.0-10.0)
== END ==
LOC: SKLAB5 10:10
PROVIDERS: ATTEND Nurse Practitioner Adult Health
DX: G40.909 Epilepsy, unspecified, not intractable, without status epilepticus (principal)

== ENCOUNTER → 2023-07-09 | Outpatient (REF) | payer MEDICARE, MEDICAID ==
[2023-07-09 14:04] LABS: HEMATOCRIT 44.2 % (42.0-52.0); HEMOGLOBIN 14.6 g/dl (13.5-17.5); MEAN CORPUSCULAR HEMOGLOBIN 29.4 pg (27.0-33.0); MEAN CORPUSCULAR VOLUME 89.1 fl (80.0-96.0); PLATELET COUNT, AUTOMATED 258 10^3/uL (150-450); RED BLOOD COUNT 4.96 10^6/uL (4.30-6.10); WHITE BLOOD COUNT 8.9 10^3/uL (4.0-10.0)
[2023-07-09 14:39] LABS: BLOOD UREA NITROGEN 18 MG/DL (9-23); CALCIUM LEVEL 8.5 MG/DL (8.3-10.6); CARBON DIOXIDE LEVEL 31 MMOL/L (20-31); CHLORIDE LEVEL 104 MMOL/L (98-107); CREATININE FOR GFR 0.73 MG/DL (0.70-1.30); GLOMERULAR FILTRATION RATE > 60.0 (>42); GLUCOSE, FASTING 130 MG/DL (74-106); POTASSIUM SERUM 4.2 MMOL/L (3.5-5.1); SODIUM LEVEL 140 MMOL/L (136-145)
== END ==
LOC: SKLAB5 13:22
PROVIDERS: ATTEND Nurse Practitioner Adult Health
DX: R06.2 Wheezing (principal); J06.9 Acute upper respiratory infection, unspecified

== ENCOUNTER → 2023-10-26 | Outpatient (REF) | payer MEDICARE, MEDICAID | LOC: SKLAB5 10:06 | PROVIDERS: ATTEND Internal Medicine | DX: G40.909 Epilepsy, unspecified, not intractable, without status epilepticus (principal) ==

== ENCOUNTER → 2023-11-18 | Outpatient (REF) | payer MEDICARE, MEDICAID ==
[2023-11-18 14:30] LABS: HEMATOCRIT 43.2 % (42.0-52.0); HEMOGLOBIN 14.3 g/dl (13.5-17.5); MEAN CORPUSCULAR HEMOGLOBIN 28.9 pg (27.0-33.0); MEAN CORPUSCULAR HGB CONC 33.1 g/dl (32.0-36.5); MEAN CORPUSCULAR VOLUME 87.4 fl (80.0-96.0); PLATELET COUNT, AUTOMATED 200 10^3/uL (150-450); RED BLOOD COUNT 4.94 10^6/uL (4.30-6.10); WHITE BLOOD COUNT 6.1 10^3/uL (4.0-10.0)
[2023-11-18 14:57] LABS: BLOOD UREA NITROGEN 16 MG/DL (9-23); CALCIUM LEVEL 8.3 MG/DL (8.3-10.6); CARBON DIOXIDE LEVEL 30 MMOL/L (20-31); CHLORIDE LEVEL 104 MMOL/L (98-107); GLOMERULAR FILTRATION RATE > 60.0 (>42); GLUCOSE, FASTING 136 MG/DL (74-106); POTASSIUM SERUM 3.7 MMOL/L (3.5-5.1); SODIUM LEVEL 139 MMOL/L (136-145)
== END ==
LOC: SKLAB5 12:16
PROVIDERS: ATTEND Internal Medicine
DX: U07.1 COVID-19 (principal); Z79.899 Other long term (current) drug therapy

== ENCOUNTER → 2023-12-01 | Outpatient (CLI) | payer MEDICARE, MEDICAID | LOC: M RAD 11:29 | PROVIDERS: ATTEND Internal Medicine | DX: R50.9 Fever, unspecified (principal); K59.00 Constipation, unspecified; I51.7 Cardiomegaly; I70.0 Atherosclerosis of aorta ==

== ENCOUNTER → 2023-12-01 | Outpatient (REF) | payer MEDICARE, MEDICAID ==
[2023-12-01 09:21] LABS: BASO # 0.1 10^3/uL (0.0-0.2); BASO % 0.3 % (0.0-1.0); HEMATOCRIT 45.1 % (42.0-52.0); HEMOGLOBIN 14.8 g/dl (13.5-17.5); LYMPH # 1.6 10^3/uL (1.5-5.0); LYMPH % 5.6 % (24.0-44.0); MEAN CORPUSCULAR HEMOGLOBIN 28.6 pg (27.0-33.0); MEAN CORPUSCULAR HGB CONC 32.8 g/dl (32.0-36.5); MEAN CORPUSCULAR VOLUME 87.2 fl (80.0-96.0); MONO % 9.4 % (2.0-8.0); NEUTROPHILS # 23.1 10^3/uL (1.5-8.5); NEUTROPHILS % 83.7 % (36.0-66.0); PLATELET COUNT, AUTOMATED 301 10^3/uL (150-450); RED BLOOD COUNT 5.17 10^6/uL (4.30-6.10); WHITE BLOOD COUNT 27.7 10^3/uL (4.0-10.0)
[2023-12-01 09:41] LABS: ALBUMIN 3.3 G/DL (3.2-5.2); ALKALINE PHOSPHATASE 131 U/L (46-116); ALT/SGPT 20 U/L (7.0-40); AST/SGOT 12 U/L (<34); BILIRUBIN,TOTAL 2.4 MG/DL (0.3-1.2); BLOOD UREA NITROGEN 19 MG/DL (9-23); CALCIUM LEVEL 8.8 MG/DL (8.3-10.6); CARBON DIOXIDE LEVEL 27 MMOL/L (20-31); CHLORIDE LEVEL 104 MMOL/L (98-107); CREATININE FOR GFR 0.79 MG/DL (0.70-1.30); GLOMERULAR FILTRATION RATE > 60.0 (>42); GLUCOSE, FASTING 126 MG/DL (74-106); POTASSIUM SERUM 4.1 MMOL/L (3.5-5.1); SODIUM LEVEL 138 MMOL/L (136-145); TOTAL PROTEIN 6.7 G/DL (5.7-8.2)
[2023-12-01 10:18] LABS: MONO # 2.6 10^3/uL (0.0-0.8)
== END ==
LOC: SKLAB5 08:27
PROVIDERS: ATTEND Internal Medicine
DX: R50.9 Fever, unspecified (principal)

== ENCOUNTER → 2023-12-01 | Outpatient (REF) | payer MEDICARE, MEDICAID ==
[2023-12-01 11:40] LABS: AMORPHOUS SEDIMENT SMALL (NEGATIVE); APPEARANCE, URINE HAZY (CLEAR); BACTERIA, URINE AUTO 1+ (NEGATIVE); BILIRUBIN, URINE AUTO NEGATIVE (NEGATIVE); BLOOD, URINE BLOOD 2+ (NEGATIVE); COLOR, URINE AMBER (YELLOW); GLUCOSE, URINE (UA) AUTO NEGATIVE (NEGATIVE); KETONE, URINE AUTO NEGATIVE (NEGATIVE); LEUKOCYTE ESTERASE, URINE AUTO 2+ (NEGATIVE); MUCUS, URINE SMALL (NEGATIVE); NITRITE, URINE AUTO POSITIVE (NEGATIVE); PROTEIN, URINE AUTO 2+ mg/dL (NEGATIVE); RBC, URINE AUTO 65 /HPF (0-3); SPECIFIC GRAVITY URINE AUTO 1.019 (1.002-1.035); SQUAMOUS EPITHELIAL CELL UR AU 2 /HPF (0-6); WBC, URINE AUTO 91 /HPF (0-3)
== END ==
LOC: SKLAB5 10:59
PROVIDERS: ATTEND Internal Medicine
DX: R50.9 Fever, unspecified (principal)

== ENCOUNTER → 2023-12-02 | Outpatient (REF) | payer MEDICARE, MEDICAID ==
[2023-12-02 11:01] LABS: BLOOD UREA NITROGEN 24 MG/DL (9-23); CALCIUM LEVEL 8.3 MG/DL (8.3-10.6); CARBON DIOXIDE LEVEL 27 MMOL/L (20-31); CHLORIDE LEVEL 102 MMOL/L (98-107); CREATININE FOR GFR 0.77 MG/DL (0.70-1.30); GLOMERULAR FILTRATION RATE > 60.0 (>42); GLUCOSE, FASTING 124 MG/DL (74-106); POTASSIUM SERUM 3.7 MMOL/L (3.5-5.1); SODIUM LEVEL 136 MMOL/L (136-145)
== END ==
LOC: SKLAB5 08:51
PROVIDERS: ATTEND Internal Medicine
DX: N39.0 Urinary tract infection, site not specified (principal)

== ENCOUNTER → 2023-12-02 | Outpatient (REF) | payer MEDICARE, MEDICAID ==
[2023-12-02 10:29] LABS: HEMATOCRIT 42.7 % (42.0-52.0); MEAN CORPUSCULAR HEMOGLOBIN 28.8 pg (27.0-33.0); MEAN CORPUSCULAR HGB CONC 32.8 g/dl (32.0-36.5); MEAN CORPUSCULAR VOLUME 87.9 fl (80.0-96.0); PLATELET COUNT, AUTOMATED 259 10^3/uL (150-450); RED BLOOD COUNT 4.86 10^6/uL (4.30-6.10); WHITE BLOOD COUNT 25.3 10^3/uL (4.0-10.0)
== END ==
LOC: SKLAB5 08:11
PROVIDERS: ATTEND Internal Medicine
DX: N39.0 Urinary tract infection, site not specified (principal)

== ENCOUNTER → 2023-12-03 | Outpatient (REF) | payer MEDICARE, MEDICAID ==
[2023-12-03 11:59] LABS: HEMATOCRIT 39.3 % (42.0-52.0); HEMOGLOBIN 12.8 g/dl (13.5-17.5); MEAN CORPUSCULAR HEMOGLOBIN 28.4 pg (27.0-33.0); MEAN CORPUSCULAR HGB CONC 32.6 g/dl (32.0-36.5); MEAN CORPUSCULAR VOLUME 87.3 fl (80.0-96.0); PLATELET COUNT, AUTOMATED 242 10^3/uL (150-450); WHITE BLOOD COUNT 13.2 10^3/uL (4.0-10.0)
[2023-12-03 12:33] LABS: ALBUMIN 2.5 G/DL (3.2-5.2); ALKALINE PHOSPHATASE 119 U/L (46-116); ALT/SGPT 20 U/L (7.0-40); AST/SGOT 18 U/L (<34); BILIRUBIN,TOTAL 0.7 MG/DL (0.3-1.2); BLOOD UREA NITROGEN 23 MG/DL (9-23); CALCIUM LEVEL 8.2 MG/DL (8.3-10.6); CARBON DIOXIDE LEVEL 31 MMOL/L (20-31); CHLORIDE LEVEL 106 MMOL/L (98-107); CREATININE FOR GFR 0.66 MG/DL (0.70-1.30); GLOMERULAR FILTRATION RATE > 60.0 (>42); GLUCOSE, FASTING 147 MG/DL (74-106); POTASSIUM SERUM 3.7 MMOL/L (3.5-5.1); SODIUM LEVEL 138 MMOL/L (136-145); TOTAL PROTEIN 5.6 G/DL (5.7-8.2)
== END ==
LOC: SKLAB5 08:01
PROVIDERS: ATTEND Internal Medicine
DX: N39.0 Urinary tract infection, site not specified (principal)

== ENCOUNTER → 2024-03-02 | Outpatient (REF) | payer MEDICARE, MEDICAID | LOC: SKLAB5 07:00 | PROVIDERS: ATTEND Internal Medicine | DX: G40.89 Other seizures (principal); Z79.899 Other long term (current) drug therapy ==

== ENCOUNTER → 2024-08-10 | Outpatient (REF) | payer MEDICARE, MEDICAID ==
[2024-08-10 06:09] LABS: BASO # 0.1 10^3/uL (0.0-0.2); BASO % 0.7 % (0.0-1.0); EOS # 0.3 10^3/uL (0.0-0.5); EOS % 3.1 % (0.0-3.0); HEMATOCRIT 40.5 % (42.0-52.0); HEMOGLOBIN 12.8 g/dl (13.5-17.5); LYMPH # 2.5 10^3/uL (1.5-5.0); LYMPH % 30.1 % (24.0-44.0); MEAN CORPUSCULAR HEMOGLOBIN 27.1 pg (27.0-33.0); MEAN CORPUSCULAR HGB CONC 31.6 g/dl (32.0-36.5); MEAN CORPUSCULAR VOLUME 85.6 fl (80.0-96.0); MONO # 0.8 10^3/uL (0.0-0.8); MONO % 9.4 % (2.0-8.0); NEUTROPHILS # 4.6 10^3/uL (1.5-8.5); NEUTROPHILS % 56.1 % (36.0-66.0); PLATELET COUNT, AUTOMATED 299 10^3/uL (150-450); RED BLOOD COUNT 4.73 10^6/uL (4.30-6.10); WHITE BLOOD COUNT 8.2 10^3/uL (4.0-10.0)
== END ==
LOC: SKLAB5 07:00
PROVIDERS: ATTEND Internal Medicine
DX: G40.909 Epilepsy, unspecified, not intractable, without status epilepticus (principal); I50.9 Heart failure, unspecified; E78.5 Hyperlipidemia, unspecified

== ENCOUNTER → 2024-12-05 | Outpatient (REF) | payer MEDICARE, MEDICAID ==
[~2024-12-05] MED LIST changes: +AMLO1TAB24 PO; +ASPI81TA26 PO; +BACI1CAP PO; +BISA10SU4 PR; +CEFP100T PO; +DULC10SU2 PR; +FAMO40TA3 PO; +FLEEENE12 PR; +IPRA0.00 NEB; +LEVE1TAB43 PO; +LISI10TA22 PO; +MILKSUS3 PO; +ONDA-83 PO; +PRED20TA PO; +SENN-23 PO; +SIME80CH5 PO; +TAMS-18 PO; +[UNRECOGNIZED DRUG - CODE] TOP
[2024-12-05 15:47] LABS: PLATELET COUNT, AUTOMATED 336 10^3/uL (150-450)
[2024-12-05 16:21] LABS: ALT/SGPT 21 U/L (7.0-40); AST/SGOT 18 U/L (<34); CALCIUM LEVEL 9.1 MG/DL (8.3-10.6); CARBON DIOXIDE LEVEL 26 MMOL/L (20-31); CHLORIDE LEVEL 103 MMOL/L (98-107); CREATININE FOR GFR 0.78 MG/DL (0.70-1.30); GLOMERULAR FILTRATION RATE > 90.0 (>42); POTASSIUM SERUM 4.3 MMOL/L (3.5-5.1); SODIUM LEVEL 142 MMOL/L (136-145)
== END ==
LOC: SKLAB5 14:43
PROVIDERS: ATTEND Internal Medicine
DX: R11.10 Vomiting, unspecified (principal); K59.00 Constipation, unspecified; D72.829 Elevated white blood cell count, unspecified

== ENCOUNTER → 2024-12-05 | Outpatient (REF) | payer MEDICARE, MEDICAID ==
[~2024-12-05] MED LIST changes: +CEFP200T PO
[2024-12-05 17:28] LABS: APPEARANCE, URINE HAZY (CLEAR); BACTERIA, URINE AUTO 1+ (NEGATIVE); BILIRUBIN, URINE AUTO NEGATIVE (NEGATIVE); BLOOD, URINE BLOOD 3+ (NEGATIVE); GLUCOSE, URINE (UA) AUTO NEGATIVE (NEGATIVE); KETONE, URINE AUTO NEGATIVE (NEGATIVE); LEUKOCYTE ESTERASE, URINE AUTO 1+ (NEGATIVE); MUCUS, URINE SMALL (NEGATIVE); NITRITE, URINE AUTO NEGATIVE (NEGATIVE); PROTEIN, URINE AUTO 1+ mg/dL (NEGATIVE); RBC, URINE AUTO TNTC /HPF (0-3); SPECIFIC GRAVITY URINE AUTO 1.013 (1.002-1.035); SQUAMOUS EPITHELIAL CELL UR AU 0 /HPF (0-6); UROBILINOGEN, URINE AUTO 0.2 mg/dL (0.0-2.0); WBC, URINE AUTO 63 /HPF (0-3)
== END ==
LOC: SKLAB5 16:19
PROVIDERS: ATTEND Internal Medicine
DX: D72.829 Elevated white blood cell count, unspecified (principal)

== ENCOUNTER 2024-12-08 10:44 | Inpatient (IN) | payer MEDICARE, MEDICAID ==
[2024-12-08] VITALS (10 sets, daily range): BP systolic 92–132; BP diastolic 54–80; TEMP 96.6–98.1; O2SAT 89–94
[~2024-12-08] VITALS: Ht 177.8 cm; Wt 81.5 kg
[2024-12-08] MEDS: TAMSULOSIN 0.4 MG CAP PO SCH (09:00)
[2024-12-08] MEDS: ATORVASTATIN 20 MG TAB PO SCH (09:00)
[2024-12-08] MEDS: SERTRALINE HCL 25 MG TABLET PO SCH (09:00)
[2024-12-08] MEDS: levETIRAcetam **XR** 500 MG TABLET PO SCH (09:00)
[2024-12-08] MEDS: ASPIRIN 81 MG ENTERIC TABLET PO SCH (09:00)
[~2024-12-08 10:44] MED LIST changes: -AMLO1TAB24 PO; -ASPI81TA26 PO; -BACI1CAP PO; -BISA10SU4 PR; -CEFP100T PO; -DULC10SU2 PR; -FAMO40TA3 PO; -FLEEENE12 PR; -IPRA0.00 NEB; -LEVE1TAB43 PO; -LISI10TA22 PO; -MILKSUS3 PO; -ONDA-83 PO; -PRED20TA PO; -SENN-23 PO; -SIME80CH5 PO; -TAMS-18 PO; -[UNRECOGNIZED DRUG - CODE] TOP
[2024-12-08 11:21] LABS: VENOUS BASE EXCESS -1.0 (-2.0-2.0); VENOUS HCO3 25.6 MMOL/L (23.0-27.0); VENOUS O2 SATURATION 76.7 % (60.0-80.0); VENOUS PARTIAL PRESSURE CO2 50.9 mmHg (38.0-50.0); VENOUS PARTIAL PRESSURE O2 45.9 mmHg (30.0-50.0); VENOUS PH 7.320 UNITS (7.330-7.430); VENOUS STANDARD HCO3 23.2 MMOL/L; VENOUS TOTAL CO2 27.2 MMOL/L (24.0-28.0)
[2024-12-08] MEDS: NS 0.9% IV ONE (11:28)
[2024-12-08] MEDS: [UNRECOGNIZED DRUG - OTHER] IV ONE (11:28)
[2024-12-08 11:39] LABS: PLATELET COUNT, AUTOMATED 115 10^3/uL (150-450)
[2024-12-08] MEDS: cefTRIAXone SOD 2 GM in DEXTROSE 5% (D5W) ADV/MINI-BAG 50 ML IV ONE (11:41)
[2024-12-08 11:46] LABS: INR 1.04
[2024-12-08 11:47] LABS: AMORPHOUS SEDIMENT SMALL (NEGATIVE); APPEARANCE, URINE CLOUDY (CLEAR); BACTERIA, URINE AUTO 1+ (NEGATIVE); BILIRUBIN, URINE AUTO 1+ (NEGATIVE); BLOOD, URINE BLOOD 1+ (NEGATIVE); GLUCOSE, URINE (UA) AUTO NEGATIVE (NEGATIVE); KETONE, URINE AUTO TRACE mg/dL (NEGATIVE); LEUKOCYTE ESTERASE, URINE AUTO 3+ (NEGATIVE); MUCUS, URINE SMALL (NEGATIVE); NITRITE, URINE AUTO NEGATIVE (NEGATIVE); PROTEIN, URINE AUTO 1+ mg/dL (NEGATIVE); RBC, URINE AUTO 14 /HPF (0-3); SPECIFIC GRAVITY URINE AUTO 1.019 (1.002-1.035); SQUAMOUS EPITHELIAL CELL UR AU 2 /HPF (0-6); TRANSITIONAL EPITHELIAL AUTO 2 /HPF; UROBILINOGEN, URINE AUTO 4.0 mg/dL (0.0-2.0); WBC, URINE AUTO 30 /HPF (0-3)
[2024-12-08 12:01] LABS: BASOPHILS 1 % (0-1); LYMPHOCYTES 5 % (16-44); MONOCYTES 3 % (0-5); NEUTROPHILS 80 % (28-66)
[2024-12-08 12:02] LABS: PLATELET ESTIMATE DECREASED (NORMAL)
[2024-12-08 12:03] LABS: ALT/SGPT 21 U/L (7.0-40); AST/SGOT 34 U/L (<34); C REACTIVE PROTEIN QUANTITATIV 23.53 MG/DL (<1.0); CALCIUM LEVEL 8.4 MG/DL (8.3-10.6); CARBON DIOXIDE LEVEL 25 MMOL/L (20-31); CHLORIDE LEVEL 98 MMOL/L (98-107); CREATININE FOR GFR 4.00 MG/DL (0.70-1.30); GLOMERULAR FILTRATION RATE 14.8 (>42); POTASSIUM SERUM 4.0 MMOL/L (3.5-5.1); SODIUM LEVEL 136 MMOL/L (136-145)
[2024-12-08] MEDS ORDERED: PRED20TA PO (15:11)
[2024-12-08] MEDS ORDERED: TAMS-18 PO (15:11)
[2024-12-08] MEDS ORDERED: FLEEENE12 PR (15:11)
[2024-12-08] MEDS ORDERED: BACI1CAP PO (15:11)
[2024-12-08] MEDS ORDERED: ASPI81TA26 PO (15:11)
[2024-12-08] MEDS ORDERED: ONDA-83 PO (15:11)
[2024-12-08] MEDS ORDERED: LEVE1TAB43 PO (15:11)
[2024-12-08] MEDS ORDERED: AMLO1TAB24 PO (15:11)
[2024-12-08] MEDS ORDERED: SENN-23 PO (15:11)
[2024-12-08] MEDS ORDERED: DULC10SU2 PR (15:11)
[2024-12-08] MEDS ORDERED: BISA10SU4 PR (15:11)
[2024-12-08] MEDS ORDERED: FAMO40TA3 PO (15:11)
[2024-12-08] MEDS ORDERED: IPRA0.00 NEB (15:11)
[2024-12-08] MEDS ORDERED: [UNRECOGNIZED DRUG - CODE] TOP (15:11)
[2024-12-08] MEDS ORDERED: SIME80CH5 PO (15:11)
[2024-12-08] MEDS ORDERED: CEFP100T PO (15:11)
[2024-12-08] MEDS ORDERED: MILKSUS3 PO (15:11)
[2024-12-08] MEDS ORDERED: LISI10TA22 PO (15:11)
[2024-12-08] MEDS ORDERED: HOME MED LIST COMPLETE! XX SCH (15:15)
[2024-12-08] MEDS: MEROPENEM 2 GM in SODIUM CHLORIDE 0.9% INJ 100 ML IV ONE (15:18)
[2024-12-08] MEDS ORDERED: BISACODYL 10 MG SUPP PR PRN (16:00)
[2024-12-08] MEDS ORDERED: ISOVUE-300 61% 100 ML VIAL As Ordered ONE (18:48)
[2024-12-08] MEDS ORDERED: ALBUTEROL 6.7 GM INHALER **FOR ANES. CART/OMNICELL ONLY As Ordered ONE (18:57)
[2024-12-08] MEDS ORDERED: dexmedeTOMIDine (4 MCG/ML) 200 MCG/50 ML BTL As Ordered ONE (18:57)
[2024-12-08] MEDS ORDERED: ONDANSETRON 4MG 2ML VIAL As Ordered ONE (18:57)
[2024-12-08] MEDS ORDERED: FUROSEMIDE 100 MG/10 ML VIAL As Ordered ONE (18:58)
[2024-12-08] MEDS ORDERED: MIDAZOLAM INJ 2 MG/2 ML VIAL As Ordered ONE (18:58)
[2024-12-08] MEDS ORDERED: PHENYLephrine 500MCG 5ML (100MCG/ML) SYRINGE As Ordered ONE (19:17)
[2024-12-08] MEDS ORDERED: ESMOLOL 100 MG/10 ML VIAL As Ordered ONE (19:30)
[2024-12-08] MEDS: IPRATROPIUM 0.5 MG/ALBUTEROL 2.5 MG INH SOL UD 3 ML NEB SCH (19:34)
[2024-12-08 21:13] LABS: ABG BASE EXCESS 0.0 (-2.0-2.0); ABG HCO3 25.8 MMOL/L (22.0-26.0); ABG O2 SATURATION 91.0 % (95.0-99.0); ABG PARTIAL PRESSURE CO2 46.1 mmHg (35.0-45.0); ABG PARTIAL PRESSURE O2 65.6 mmHg (75.0-100.0); ABG STANDARD HCO3 24.4 MMOL/L. (22.0-26.0); ABG TOTAL CO2 27.2 MMOL/L (23.0-31.0); ABG pH (ARTERIAL) 7.365 UNITS (7.350-7.450)
[2024-12-08] MEDS: ACETAMINOPHEN *IV* 1,000 MG in IV 1 EA IV ONE (22:07)
[2024-12-09] VITALS (42 sets, daily range): BP systolic 71–127; BP diastolic 40–79; TEMP 97.7–98.6; O2SAT 88–98
[2024-12-09] MEDS: NS (Normal Saline) 0.9% 1,000 ML IV ONE ×2 (01:10→02:58)
[2024-12-09 01:36] LABS: CALCIUM LEVEL 7.5 MG/DL (8.3-10.6); CARBON DIOXIDE LEVEL 26.0 MMOL/L (20-31); CHLORIDE LEVEL 101.0 MMOL/L (98-107); CREATININE FOR GFR 2.01 MG/DL (0.70-1.30); GLOMERULAR FILTRATION RATE 33.8 (>42); MAGNESIUM LEVEL 1.6 MG/DL (1.8-2.4); POTASSIUM SERUM 4.1 MMOL/L (3.5-5.1); SODIUM LEVEL 138.0 MMOL/L (136-145)
[2024-12-09] MEDS: MAG SULF 1GM/100ML (MAG RUN) 1 GM in IV 1 EA IV SCH (03:47)
[2024-12-09] MEDS: NOREPINEPHRINE 4MG IN D5 250ML 4 MG in IV 1 EA IV SCH (04:50)
[2024-12-09 05:44] LABS: CALCIUM LEVEL 7.4 MG/DL (8.3-10.6); CARBON DIOXIDE LEVEL 27.0 MMOL/L (20-31); CHLORIDE LEVEL 102.0 MMOL/L (98-107); CREATININE FOR GFR 1.49 MG/DL (0.70-1.30); GLOMERULAR FILTRATION RATE 48.3 (>42); POTASSIUM SERUM 4.0 MMOL/L (3.5-5.1); SODIUM LEVEL 138.0 MMOL/L (136-145)
[2024-12-09 06:02] LABS: PLATELET COUNT, AUTOMATED 96 10^3/uL (150-450)
[2024-12-09] MEDS: SENNOSIDES/DOCUSATE SODIUM 8.6 MG/50MG TAB PO SCH (09:53)
[2024-12-09] MEDS: cefTRIAXone SOD 2 GM in DEXTROSE 5% (D5W) ADV/MINI-BAG 50 ML IV SCH (09:58)
[2024-12-09 10:19] LABS: MAGNESIUM LEVEL 2.0 MG/DL (1.8-2.4)
[2024-12-09] MEDS: PANTOPRAZOLE 40MG VIAL IV SCH (10:38)
[2024-12-09] MEDS: HEPARIN SOD 5000 UNITS/ML 1 ML VIAL/SYRINGE SQ SCH (14:12)
[2024-12-10] VITALS (26 sets, daily range): BP systolic 100–116; BP diastolic 52–62; TEMP 97.9–98.6; O2SAT 88–98
[2024-12-10 06:16] LABS: BASO # 0.1 10^3/uL (0.0-0.2); BASO % 0.3 % (0.0-1.0); EOS # 0.1 10^3/uL (0.0-0.5); EOS % 0.6 % (0.0-3.0); LYMPH # 1.4 10^3/uL (1.5-5.0); LYMPH % 7.5 % (24.0-44.0); MONO # 1.8 10^3/uL (0.0-0.8); MONO % 9.6 % (2.0-8.0); NEUTROPHILS # 14.9 10^3/uL (1.5-8.5); NEUTROPHILS % 78.5 % (36.0-66.0); PLATELET COUNT, AUTOMATED 106 10^3/uL (150-450)
[2024-12-10 06:40] LABS: C REACTIVE PROTEIN QUANTITATIV 9.49 MG/DL (<1.0); CALCIUM LEVEL 7.7 MG/DL (8.3-10.6); CARBON DIOXIDE LEVEL 32 MMOL/L (20-31); CHLORIDE LEVEL 104 MMOL/L (98-107); CREATININE FOR GFR 0.71 MG/DL (0.70-1.30); GLOMERULAR FILTRATION RATE > 90.0 (>42); POTASSIUM SERUM 3.7 MMOL/L (3.5-5.1); SODIUM LEVEL 143 MMOL/L (136-145)
[2024-12-11] VITALS (9 sets, daily range): BP systolic 102–130; BP diastolic 50–66; TEMP 98–98.5; O2SAT 92–97
[2024-12-11 05:58] LABS: PLATELET COUNT, AUTOMATED 147 10^3/uL (150-450)
[2024-12-11 06:17] LABS: CALCIUM LEVEL 8.1 MG/DL (8.3-10.6); CARBON DIOXIDE LEVEL 31 MMOL/L (20-31); CHLORIDE LEVEL 103 MMOL/L (98-107); CREATININE FOR GFR 0.60 MG/DL (0.70-1.30); GLOMERULAR FILTRATION RATE > 90.0 (>42); POTASSIUM SERUM 3.9 MMOL/L (3.5-5.1); SODIUM LEVEL 143 MMOL/L (136-145)
[2024-12-11 06:27] LABS: ATYPICAL LYMPH 1 % (0-5); EOSINOPHILS 3 % (0-3); LYMPHOCYTES 6 % (16-44); MONOCYTES 16 % (0-5); NEUTROPHILS 74 % (28-66)
[2024-12-11 06:29] LABS: PLATELET ESTIMATE DECREASED (NORMAL)
[2024-12-12] VITALS (17 sets, daily range): BP systolic 104–120; BP diastolic 51–76; TEMP 98–98.8; O2SAT 86–95
[2024-12-12 05:56] LABS: BASO # 0.1 10^3/uL (0.0-0.2); BASO % 0.9 % (0.0-1.0); EOS # 0.6 10^3/uL (0.0-0.5); EOS % 3.8 % (0.0-3.0); LYMPH # 1.7 10^3/uL (1.5-5.0); LYMPH % 11.4 % (24.0-44.0); MONO # 1.4 10^3/uL (0.0-0.8); MONO % 9.2 % (2.0-8.0); NEUTROPHILS # 8.7 10^3/uL (1.5-8.5); NEUTROPHILS % 58.1 % (36.0-66.0); PLATELET COUNT, AUTOMATED 193 10^3/uL (150-450)
[2024-12-12 06:19] LABS: CALCIUM LEVEL 8.3 MG/DL (8.3-10.6); CARBON DIOXIDE LEVEL 29 MMOL/L (20-31); CHLORIDE LEVEL 101 MMOL/L (98-107); CREATININE FOR GFR 0.57 MG/DL (0.70-1.30); GLOMERULAR FILTRATION RATE > 90.0 (>42); POTASSIUM SERUM 4.0 MMOL/L (3.5-5.1); SODIUM LEVEL 139 MMOL/L (136-145)
[2024-12-12] MEDS: CEFPODOXIME PROXETIL 200 MG TABLET PO SCH (18:37)
[2024-12-13] VITALS (12 sets, daily range): BP systolic 104–117; BP diastolic 58–60; TEMP 98–98.3; O2SAT 89–94
[2024-12-13] MEDS ORDERED: BACI1CAP PO (07:06)
[2024-12-13] MEDS ORDERED: CEFP200T PO (07:06)
[2024-12-13 07:59] LABS: BASO # 0.2 10^3/uL (0.0-0.2); BASO % 1.1 % (0.0-1.0); EOS # 0.6 10^3/uL (0.0-0.5); EOS % 3.9 % (0.0-3.0); LYMPH # 1.7 10^3/uL (1.5-5.0); LYMPH % 12.1 % (24.0-44.0); MONO # 1.0 10^3/uL (0.0-0.8); MONO % 7.4 % (2.0-8.0); NEUTROPHILS # 8.3 10^3/uL (1.5-8.5); NEUTROPHILS % 58.5 % (36.0-66.0); PLATELET COUNT, AUTOMATED 290 10^3/uL (150-450)
[2024-12-13 08:12] LABS: ERYTHROCYTE SEDIMENTATION RATE 41 mm/hr (0-20)
[2024-12-13 08:24] LABS: C REACTIVE PROTEIN QUANTITATIV 5.31 MG/DL (<1.0)
[2024-12-13 08:25] LABS: ALT/SGPT 87 U/L (7.0-40); AST/SGOT 60 U/L (<34); CALCIUM LEVEL 8.7 MG/DL (8.3-10.6); CARBON DIOXIDE LEVEL 31 MMOL/L (20-31); CHLORIDE LEVEL 101 MMOL/L (98-107); CREATININE FOR GFR 0.59 MG/DL (0.70-1.30); GLOMERULAR FILTRATION RATE > 90.0 (>42); POTASSIUM SERUM 4.1 MMOL/L (3.5-5.1); SODIUM LEVEL 142 MMOL/L (136-145)
[2024-12-13] MEDS ORDERED: PILL CUTTER 1 EACH XX ONE (09:41)
== END 2024-12-13 14:32 | DRG 853 ==
LOC: M ED 10:44 → M ED INP 15:57 → M PCU 17:35 → M ICU 12-09 04:25 → M PCU 12-09 23:26
PROVIDERS: ADMIT Internal Medicine; ATTEND General Practice
PROC: 0T768DZ Dilation of Right Ureter with Intraluminal Device, Via Natural or Artificial Opening Endoscopic (ICD-10-PCS; principal; 2024-12-08 17:30)
PROC: B246ZZZ Ultrasonography of Right and Left Heart (ICD-10-PCS; 2024-12-09)
DX: A41.9 Sepsis, unspecified organism (principal); R65.21 Severe sepsis with septic shock; I69.351 Hemiplegia and hemiparesis following cerebral infarction affecting right dominant side; N13.6 Pyonephrosis; N17.9 Acute kidney failure, unspecified; J96.10 Chronic respiratory failure, unspecified whether with hypoxia or hypercapnia; I50.32 Chronic diastolic (congestive) heart failure; J98.11 Atelectasis; F01.50 Vascular dementia, unspecified severity, without behavioral disturbance, psychotic disturbance, mood disturbance, and anxiety; I11.0 Hypertensive heart disease with heart failure; G40.909 Epilepsy, unspecified, not intractable, without status epilepticus; D69.59 Other secondary thrombocytopenia; I48.91 Unspecified atrial fibrillation; I69.322 Dysarthria following cerebral infarction; J44.9 Chronic obstructive pulmonary disease, unspecified; F32.A Depression, unspecified; E83.42 Hypomagnesemia; E78.5 Hyperlipidemia, unspecified; N40.0 Benign prostatic hyperplasia without lower urinary tract symptoms; K59.00 Constipation, unspecified; Z79.52 Long term (current) use of systemic steroids; Z99.81 Dependence on supplemental oxygen; Z79.82 Long term (current) use of aspirin; Z79.899 Other long term (current) drug therapy; M79.89 Other specified soft tissue disorders; Z66 Do not resuscitate; Z74.01 Bed confinement status

== ENCOUNTER → 2024-12-08 | Outpatient (REF) | payer MEDICARE, MEDICAID ==
[~2024-12-08] MED LIST changes: -CEFP200T PO
== END ==
LOC: SKLAB5 09:42
PROVIDERS: ATTEND Internal Medicine
DX: Z53.8 Procedure and treatment not carried out for other reasons (principal)

== ENCOUNTER → 2024-12-15 | Outpatient (REF) | payer MEDICARE, MEDICAID ==
[~2024-12-15] MED LIST changes: +AMLO1TAB24 PO; +ASPI81TA26 PO; +BACI1CAP PO; +BISA10SU4 PR; +CEFP100T PO; +CEFP200T PO; +DULC10SU2 PR; +FAMO40TA3 PO; +FLEEENE12 PR; +IPRA0.00 NEB; +LEVE1TAB43 PO; +LISI10TA22 PO; +MILKSUS3 PO; +ONDA-83 PO; +PRED20TA PO; +SENN-23 PO; +SIME80CH5 PO; +TAMS-18 PO; +[UNRECOGNIZED DRUG - CODE] TOP
[2024-12-15 13:02] LABS: PLATELET COUNT, AUTOMATED 398 10^3/uL (150-450)
[2024-12-15 13:18] LABS: ALT/SGPT 96 U/L (7.0-40); AST/SGOT 48 U/L (<34); CALCIUM LEVEL 8.7 MG/DL (8.3-10.6); CARBON DIOXIDE LEVEL 29 MMOL/L (20-31); CHLORIDE LEVEL 101 MMOL/L (98-107); CREATININE FOR GFR 0.59 MG/DL (0.70-1.30); GLOMERULAR FILTRATION RATE > 90.0 (>42); POTASSIUM SERUM 4.2 MMOL/L (3.5-5.1); SODIUM LEVEL 139 MMOL/L (136-145)
[2024-12-15 13:36] LABS: EOSINOPHILS 4 % (0-3); LYMPHOCYTES 12 % (16-44); METAMYELOCYTES 3 % (0-0); MONOCYTES 8 % (0-5); MYELOCYTES 1 % (0-0); NEUTROPHILS 70 % (28-66)
[2024-12-15 13:37] LABS: PLATELET ESTIMATE NORMAL (NORMAL)
== END ==
LOC: SKLAB5 11:48
PROVIDERS: ATTEND Internal Medicine
DX: A41.9 Sepsis, unspecified organism (principal)

== ENCOUNTER → 2024-12-18 | Outpatient (REF) | payer MEDICARE, MEDICAID ==
[2024-12-18 09:58] LABS: PLATELET COUNT, AUTOMATED 432 10^3/uL (150-450)
[2024-12-18 11:03] LABS: ALT/SGPT 65 U/L (7.0-40); AST/SGOT 28 U/L (<34); CALCIUM LEVEL 9.1 MG/DL (8.3-10.6); CARBON DIOXIDE LEVEL 30 MMOL/L (20-31); CHLORIDE LEVEL 101 MMOL/L (98-107); CREATININE FOR GFR 0.60 MG/DL (0.70-1.30); GLOMERULAR FILTRATION RATE > 90.0 (>42); POTASSIUM SERUM 4.1 MMOL/L (3.5-5.1); SODIUM LEVEL 142 MMOL/L (136-145)
== END ==
LOC: SKLAB5 08:24
PROVIDERS: ATTEND Internal Medicine
DX: A41.9 Sepsis, unspecified organism (principal)

== ENCOUNTER → 2025-01-02 | Outpatient (REF) | payer MEDICARE, MEDICAID ==
[2025-01-02 12:15] LABS: CHOLESTEROL LEVEL 119.0 MG/DL (<200); CHOLESTEROL RISK RATIO 3.82 (<5); LDL CHOLESTEROL 68.1 MG/DL (<100); NON-HDL-C 87.9 MG/DL; TRIGLYCERIDES LEVEL 99.0 MG/DL (<150)
== END ==
LOC: SKLAB5 07:00
PROVIDERS: ATTEND Internal Medicine
DX: G40.909 Epilepsy, unspecified, not intractable, without status epilepticus (principal); Z79.899 Other long term (current) drug therapy

== ENCOUNTER → 2025-01-12 | Outpatient (CLI) | payer MEDICARE, MEDICAID | LOC: M RAD 11:21 | PROVIDERS: ATTEND Internal Medicine | DX: M27.8 Other specified diseases of jaws (principal) ==

== ENCOUNTER → 2025-02-06 | Outpatient (REF) | payer MEDICARE, MEDICAID ==
[2025-02-06 08:21] LABS: PLATELET COUNT, AUTOMATED 253 10^3/uL (150-450)
[2025-02-06 08:44] LABS: ALT/SGPT 18 U/L (7.0-40); AST/SGOT 17 U/L (<34); CALCIUM LEVEL 9.1 MG/DL (8.3-10.6); CARBON DIOXIDE LEVEL 30 MMOL/L (20-31); CHLORIDE LEVEL 106 MMOL/L (98-107); CREATININE FOR GFR 0.72 MG/DL (0.70-1.30); GLOMERULAR FILTRATION RATE > 90.0 (>42); POTASSIUM SERUM 4.0 MMOL/L (3.5-5.1); SODIUM LEVEL 144 MMOL/L (136-145)
[2025-02-06 12:26] LABS: APPEARANCE, URINE HAZY (CLEAR); BACTERIA, URINE AUTO 1+ (NEGATIVE); BILIRUBIN, URINE AUTO NEGATIVE (NEGATIVE); BLOOD, URINE BLOOD 3+ (NEGATIVE); GLUCOSE, URINE (UA) AUTO NEGATIVE (NEGATIVE); KETONE, URINE AUTO NEGATIVE (NEGATIVE); LEUKOCYTE ESTERASE, URINE AUTO 1+ (NEGATIVE); MUCUS, URINE SMALL (NEGATIVE); NITRITE, URINE AUTO NEGATIVE (NEGATIVE); PROTEIN, URINE AUTO 2+ mg/dL (NEGATIVE); RBC, URINE AUTO TNTC /HPF (0-3); SPECIFIC GRAVITY URINE AUTO 1.012 (1.002-1.035); SQUAMOUS EPITHELIAL CELL UR AU 0 /HPF (0-6); UROBILINOGEN, URINE AUTO 0.2 mg/dL (0.0-2.0); WBC, URINE AUTO 17 /HPF (0-3)
== END ==
LOC: SKLAB5 07:29
PROVIDERS: ATTEND Internal Medicine
DX: Z01.818 Encounter for other preprocedural examination (principal); J44.9 Chronic obstructive pulmonary disease, unspecified; Z79.899 Other long term (current) drug therapy

== ENCOUNTER → 2025-02-06 | Outpatient (CLI) | payer MEDICARE, MEDICAID | LOC: M RAD 09:38 | PROVIDERS: ATTEND Nurse Practitioner | DX: Z01.818 Encounter for other preprocedural examination (principal); J44.9 Chronic obstructive pulmonary disease, unspecified ==

== ENCOUNTER → 2025-02-12 | Outpatient (REF) | payer MEDICARE, MEDICAID | LOC: SKLAB5 06:36 | PROVIDERS: ATTEND Internal Medicine | DX: Z01.818 Encounter for other preprocedural examination (principal); R94.31 Abnormal electrocardiogram [ECG] [EKG] ==